=== PATIENT | male | born 1970 | race Caucasian/White ===

== ENCOUNTER 2019-11-16 11:30 | Emergency (ER) | payer OTHER, SELFPAY ==
[2019-11-16 11:38] VITALS: BP 152/109; PULSE 95; RESP 16; TEMP 37; O2SAT 97
--- NOTE | 2019-11-16 11:45 | ED.GENADULT ---
HPI - General Adult General Chief complaint: Upper Respiratory Infection Stated complaint: sinus infection Source: patient and RN notes reviewed Mode of arrival: ambulatory Limitations: no limitations History of Present Illness HPI narrative: This is a 49 years old male presents to the office for an evaluation of an evaluation of bad head/chest congestion for three days. He states he has chronic cough due to his COPD from heavy smoker. He used to smoke 3 packs a day now cutting down to 3 to half a pack a day. Cough is worse at nighttime when he is lying down. He has been using his nebulizer treatment along with maintenance inhaler with no relief. Denies sick contact at home. He did not try [id number] medication for his symptoms. He has been staying at home; denies concern for COVID. Related Data Home Medications Medication Instructions Recorded Confirmed albuterol sulfate 2 puff INHALATION QID 11/16/19 11/16/19 albuterol sulfate 2.5 mg INHALATION DIRECTED 11/16/19 11/16/19 fluticasone propion-salmeterol 1 inh INHALATION DIRECTED 11/16/19 11/16/19 [Donaldxkishan Inhub] gabapentin 100 mg PO DAILY 11/16/19 11/16/19 ipratropium-albuterol 3 ml INHALATION DIRECTED 11/16/19 11/16/19 Allergies Allergy/AdvReac Type Severity Reaction Status Date / Time No Known Allergies Allergy Verified 11/16/19 11:49 Review of Systems Review of Systems: Narrative: CONSTITUTIONAL: Denies fever or chills/sweats ENT:Denies sore throat. Reports sinus congestion CARDIOVASCULAR: Denies chest pain RESPIRATORY: Reports dyspnea, wheezing, cough GASTROINTESTINAL: Denies abdominal pain, nausea, vomiting GENITOURINARY: Admits to urinary retention at times due to his enlarged prostate however it is not new. SKIN: Denies rash MUSCULOSKELETAL: Denies acute back pain NEUROLOGIC: Denies lightheaded PMFSH Past Medical History Medical History (Updated 11/16/19 @ 12:08 by CARISSA Gaming) Chronic back pain fell off a ladder COPD (chronic obstructive pulmonary disease) Enlarged prostate Social History Social History (Updated 11/16/19 @ 11:45 by CARISSA Gaming) Smoking status: Current every day smoker Comments At time of signature, I agree with nursing past medical, surgical, social and family history. There is no relevant family history pertinent to the presenting complaint. Exam Narrative: Exam Narrative: GENERAL: This is a well-nourished, well-developed patient, in no apparent distress, very talkative, older than state age. EYES: Sclera clear/white. Vision is grossly intact. EARS: External ears normal, auditory canals clear and without drainage, TMs normal without perforation. Hearing grossly intact. NOSE: External nose normal with no obvious nasal discharge, nares without redness, no rhinorrhea. THROAT: Mucous membranes moist, posterior pharynx erythema with drainage NECK: Neck supple, non-tender without lymphadenopathy, masses or thyromegaly. CARDIOVASCULAR: Regular rate and rhythm without murmurs, gallops, or rubs. RESPIRATORY: Wheezing noted with inspiration and expiration, barrel chest noted; no pursed lip breathing or use of accessory muscle. Breath sounds equal bilaterally. GASTROINTESTINAL: Abdomen soft, non-tender, nondistended. Bowel sounds are active. No guarding. SKIN: warm, intact with no suspicious lesions or rash, good texture and turgor. NEURO: awake, alert, and oriented to person, place and time. There were no obvious focal neurologic abnormalities. Steady gait Tim Coma Scale Eye Opening: Spontaneous 4 Tim Coma Scale Motor: Obeys Commands 6 Tim Coma Scale Verbal: Oriented 5 Medical Decision Making MDM Narrative Medical decision making narrative: Elevated BP noted: patient is informed that they may have pre-hypertension or hypertension based on a blood pressure reading in the department. I recommend the patient call the primary care provider listed on their discharge instructions or
== END 2019-11-16 12:11 | disposition home or self-care (01) ==
PROVIDERS: Emergency Provider Nurse Practitioner
DX: J06.9 Acute upper respiratory infection, unspecified (principal); J44.9 Chronic obstructive pulmonary disease, unspecified; F17.210 Nicotine dependence, cigarettes, uncomplicated; N40.0 Benign prostatic hyperplasia without lower urinary tract symptoms; R03.0 Elevated blood-pressure reading, without diagnosis of hypertension
CPT/HCPCS: 99213; G0463

== ENCOUNTER 2019-12-11 17:14 | Emergency (ER) | payer OTHER, SELFPAY ==
--- NOTE | 2019-12-11 17:17 | ED.GENADULT ---
HPI - General Adult General Chief complaint: Upper Respiratory Infection Stated complaint: chest congestion/cough/wheezing Time Seen by Provider: 12/11/19 17:17 Source: patient Mode of arrival: ambulatory Limitations: no limitations History of Present Illness HPI narrative: 49-year-old male patient presents to the [facility] with complaints of worsening shortness of breath. Patient states he has had issues with the eyes for about a month to 3 months. Patient states is been getting worse. Patient has a history of COPD with multiple breathing treatments and inhalers at home. Patient states he has been trying them which has not been helping. Patient denies any fevers. Denies any chest pain. Denies any abdominal pain, nausea, vomiting or diarrhea. Related Data Home Medications Medication Instructions Recorded Confirmed albuterol sulfate 2 puff INHALATION QID 11/16/19 12/11/19 albuterol sulfate 2.5 mg INHALATION DIRECTED 11/16/19 12/11/19 gabapentin 100 mg PO DAILY 11/16/19 12/11/19 ipratropium-albuterol 3 ml INHALATION DIRECTED PRN 11/16/19 12/11/19 albuterol sulfate [ProAir HFA] 2 puff INHALATION QID 12/11/19 12/11/19 fluticasone propion-salmeterol 1 inh INHALATION Q12H 12/11/19 12/11/19 [Wixela Inhub] quetiapine 100 mg PO HS 12/11/19 12/11/19 Allergies Allergy/AdvReac Type Severity Reaction Status Date / Time No Known Allergies Allergy Verified 12/11/19 17:17 Review of Systems Review of Systems: Narrative: CONSTITUTIONAL: Denies fever, chills, or sweats. EYES: Denies visual changes, redness, or discharge. ENT: Denies rhinorrhea, congestion, sore throat, or otalgia. CARDIOVASCULAR: Denies chest pain, palpitations, or edema. RESPIRATORY: Positive cough with dyspnea. GASTROINTESTINAL: Denies abdominal pain, nausea, vomiting, or diarrhea. GENITOURINARY: Denies dysuria or hematuria. SKIN: Denies rash or itching. MUSCULOSKELETAL: Denies back pain, joint pain, or myalgia. NEUROLOGIC: Denies headache, numbness, or weakness. PSYCHIATRIC: Denies anxiety or depression. [facility]LY [facility] Past Medical History Medical History Chronic back pain fell off a ladder COPD (chronic obstructive pulmonary disease) Enlarged prostate Social History Social History Smoking status: Current every day smoker Comments At the time of my signature I agree with nursing past medical history, surgical, social, and family history. There is no relevant family history pertinent to the presenting complaint. Exam Narrative: Exam Narrative: GENERAL: ill-appearing, well-nourished, and in acute distress. HEAD: Normocephalic, atraumatic. EYES: PERRLA and EOMI. ENT: Nares clear, no rhinorrhea or epistaxis. Mucous membranes moist. NECK: Supple. No lymphadenopathy CHEST: Patient has inspiratory and expiratory wheezing noted to bilateral upper and lower lobes on auscultation. Patient is having some labored breathing at this time. HEART: Regular rate and rhythm. No murmur heard. Normal peripheral pulses. ABDOMEN: Soft, nontender, nondistended, normal active bowel sounds. EXTREMITIES: Normal range of motion. No edema. SKIN: Warm, dry, no rash. NEURO: No focal deficits. Alert and oriented x3. Course Vital Signs Vital signs: Vital Signs Temperature 37.0 C 12/11/19 17:20 Pulse Rate 105 H 12/11/19 17:20 Respiratory Rate 16 12/11/19 17:20 Blood Pressure 145/73 H 12/11/19 17:20 Pulse Oximetry 97 12/11/19 17:20 Temperature 37.0 C 12/11/19 17:20 Pulse Rate 105 H 12/11/19 17:20 Respiratory Rate 16 12/11/19 17:20 Blood Pressure 145/73 H 12/11/19 17:20 Pulse Oximetry 97 12/11/19 17:20 Vital signs reviewed. The patient has been informed that they may have pre-hypertension or Hypertension based on a BP reading in the department. I recommend that the patient call the primary care provider listed on their discharge inst
[2019-12-11 17:20] VITALS: BP 145/73; PULSE 105; RESP 16; TEMP 37; O2SAT 97
[2019-12-11] MEDS: ALBUTEROL SULFATE NEB 2.5 MG/3 ML INH INHALATION (17:38)
[2019-12-11] MEDS: IPRATROPIUM BR 0.02% INH SOLN 0.5 MG/2.5 ML VIAL INHALATION (17:39)
--- NOTE | 2019-12-11 17:46 | ECG_ITS ---
Measurements Intervals [place] Rate: 96 P: 92 MT: 144 QRS: 58 QRSD: 81 T: 64 QT: 323 QTc: 408 Interpretive Statements SINUS RHYTHM RIGHT ATRIAL ENLARGEMENT LEFT ATRIAL ENLARGEMENT RSR' IN V1 OR V2, PROBABLY NORMAL VARIANT BASELINE ARTIFACT- I, II, III, AVR, AVL, AVF BORDERLINE ECG Electronically Signed On 12-12-2019 6:51:50 CDT by John De Luna D.O.
== END 2019-12-11 17:56 | disposition short-term general hospital (02) ==
PROVIDERS: Emergency Provider Nurse Practitioner Family; PCP Family Medicine
DX: R06.02 Shortness of breath (principal); J44.9 Chronic obstructive pulmonary disease, unspecified; N40.0 Benign prostatic hyperplasia without lower urinary tract symptoms; M54.9 Dorsalgia, unspecified; G89.29 Other chronic pain; F17.210 Nicotine dependence, cigarettes, uncomplicated
CPT/HCPCS: 93005; 94640; 99215; G0463

== ENCOUNTER 2020-08-31 14:22 | Emergency (ER) | payer OTHER, SELFPAY ==
--- NOTE | ~2020-08-31 | XR_ITS ---
EXAMINATION: [id number] INDICATION: Bilateral rib pain TECHNIQUE: A frontal view of the chest and multiple views of the bilateral ribs were obtained on nine radiographs. COMPARISON: None. FINDINGS: There are healed fractures at the posterior aspects of the of the left fourth through sixth ribs and the right seventh rib. There is a questionable nondisplaced fracture at the anterior aspect of the right seventh rib. The lungs are free of acute opacities. There is no pleural effusion or pne umothorax. The cardiomediastinal silhouette is normal. IMPRESSION: 1. Questionable nondisplaced fracture at the anterior aspect of the right seventh rib. Healed bilater al rib fractures. Reviewed, dictated and finalized at location A. DENT PHYSICIAN IMPRESSION: 1. Questionable nondisplaced fracture at the anterior aspect of the right seven th rib. Healed bilateral rib fractures.
[2020-08-31 14:51] VITALS: BP 143/84; PULSE 101; RESP 20; TEMP 36.6; O2SAT 97
--- NOTE | 2020-08-31 14:55 | ED.CHESTPAIN ---
HPI - Chest Pain General Chief Complaint: Chest Pain Stated Complaint: bruised chest area Time Seen by Provider: 08/31/20 14:55 Source: patient Mode of arrival: ambulatory Limitations: no limitations History of Present Illness HPI narrative: Abimael Leung is a 50 yo male with copd, who comes to express care with mid chest asuncion after wrestling teenaged child who slammed him to floor 2 days ago- since then has had chest wall pain and when coughs (from copd) is blood tinged. Patient has bipolar and PTSD, related blood pressure, COPD Related Data Home Medications Medication Instructions Recorded Confirmed gabapentin 300 mg PO DAILY 11/16/19 08/31/20 albuterol sulfate [ProAir HFA] 2 puff INHALATION QID 12/11/19 08/31/20 fluticasone propion-salmeterol 1 inh INHALATION Q12H 12/11/19 08/31/20 [Wixela Inhub] quetiapine 100 mg PO HS 12/11/19 08/31/20 atorvastatin 20 mg PO DAILY 08/31/20 08/31/20 cyclobenzaprine 5 mg PO TID PRN 08/31/20 08/31/20 diltiazem HCl 120 mg PO DAILY 08/31/20 08/31/20 ergocalciferol (vitamin D2) 1,250 mcg PO WEEKLY 08/31/20 08/31/20 [Vitamin D2] metoprolol succinate 25 mg PO DAILY 08/31/20 08/31/20 montelukast 10 mg PO DAILY 08/31/20 08/31/20 tramadol 50 mg PO Q8H PRN 08/31/20 08/31/20 Allergies Allergy/AdvReac Type Severity Reaction Status Date / Time No Known Allergies Allergy Verified 08/31/20 14:53 Review of Systems Review of Systems: Narrative: CONSTITUTIONAL: Denies fever, chills, sweats. EYES: Denies visual changes, redness, discharge. ENT: Denies rhinorrhea, congestion, sore throat, otalgia. CARDIOVASCULAR: has chest wall pain, palpitations, edema. RESPIRATORY: Denies dyspnea, wheezing, cough GASTROINTESTINAL: Denies abdominal pain, nausea, vomiting, diarrhea. GENITOURINARY: Denies dysuria, hematuria, abnormal discharge SKIN: Denies rash or itching. NEUROLOGIC: Denies numbness, or focal weakness. PSYCHIATRIC: Denies anxiety or depression. [facility] Past Medical History Medical History (Updated 08/31/20 @ 15:37 by Bryanna Pedraza CNP) Chronic back pain fell off a ladder COPD (chronic obstructive pulmonary disease) Enlarged prostate Family History Family History Other Heart disease Social History Social History (Updated 08/31/20 @ 15:26 by Bryanna Pedraza CNP) Smoking status: Current every day smoker Alcohol intake: never Comments At time of signature, I agree with nursing past medical, surgical, social and family history. There is no relevant family history pertinent to the presenting complaint. Has hypertension, blood pressure is elevated Exam Narrative: Exam Narrative: GENERAL: This is a well-nourished, well-developed patient, in moderate distress. Pain is 6-7/10, with coughing is 10/10 HEAD: normocephalic, atraumatic. EYES: Sclera clear/white. Vision is grossly intact. EARS: External ears normal. Hearing grossly intact. NOSE: External nose normal without nasal discharge, nares without redness, no rhinorrhea. THROAT: Mucous membranes moist, NECK: Neck supple, CARDIOVASCULAR: Regular rate and rhythm without murmurs, gallops, or rubs. RESPIRATORY: Diminished to auscultation. Breath sounds equal bilaterally. No wheezes, rales, or rhonchi. popping noise with deep inspiration GASTROINTESTINAL: Abdomen soft, SKIN: warm, intact with no suspicious lesions or rash, good texture and turgor. NEURO: awake, alert, and oriented to person, place and time. There were no obvious focal neurologic abnormalities. Steady gait EXTREMITIES: Normal range of motion. BACK: Nontender without deformity Course Course Emergency Course: [facility] of [facility] pain after receiving room with adolescent child at home given 4. 2 days ago now has some blood-tinged sputum with coughing from COPD and continues to have chest wall pain X-ray of chest done for bilateral ribs and PA chest-shows pos
== END 2020-08-31 15:52 | disposition home or self-care (01) ==
PROVIDERS: Emergency Provider Nurse Practitioner
DX: S22.31XA Fracture of one rib, right side, initial encounter for closed fracture (principal); W03.XXXA Other fall on same level due to collision with another person, initial encounter; Y93.83 Activity, rough housing and horseplay; J44.9 Chronic obstructive pulmonary disease, unspecified; N40.0 Benign prostatic hyperplasia without lower urinary tract symptoms; E78.00 Pure hypercholesterolemia, unspecified; I10 Essential (primary) hypertension; F31.9 Bipolar disorder, unspecified
CPT/HCPCS: 71111; 99213; G0463

== ENCOUNTER 2022-02-01 12:37 | Emergency (ER) | payer OTHER, SELFPAY ==
[2022-02-01 12:45] VITALS: BP 147/90; PULSE 90; RESP 18; TEMP 36.9; O2SAT 100
--- NOTE | 2022-02-01 12:47 | ED.MALEGU ---
HPI - Male Genitourinary General Chief complaint: Urogenital-Male Stated complaint: leg cramps poss uti Time Seen by Provider: 02/01/22 12:47 Source: patient and RN notes reviewed History of Present Illness HPI Narrative: Patient is a 51-year-old male who presents the urgent care with complaints of odorous urination, dribbling, incontinence, difficulty urinating and dark urine for the last 2 weeks. Patient also reports of bilateral low back pain. Patient states he has had a urologist in the past and has had issues with his prostate and has not since followed up. Patient states he did call his doctor and they were unable to see him until March. Patient states has been complaining of leg cramps for some time however they have worsened in the last couple weeks. Patient reports of some nausea and intermittent lower abdominal pressure. Denies any vomiting or diarrhea. Denies any known fevers. Patient has not taken anything [id number] for his symptoms. No other acute complaints. No acute distress noted. Patient aware of the plan of care. Some parts of this dictation were generated by voice recognition software and may contain typographical and/or grammatical inaccuracies. Related Data Home Medications Medication Instructions Recorded Confirmed gabapentin 100 mg capsule 300 mg PO DAILY 11/16/19 08/31/20 albuterol sulfate 90 mcg/actuation 2 puff inhalation QID 12/11/19 08/31/20 aerosol inhaler (ProAir HFA) fluticasone 250 mcg-salmeterol 50 1 inh inhalation Q12H 12/11/19 08/31/20 mcg/dose blistr powdr for inhalation (Wixela Inhub) quetiapine 100 mg tablet 100 mg PO HS 12/11/19 08/31/20 atorvastatin 20 mg tablet 20 mg PO DAILY 08/31/20 08/31/20 cyclobenzaprine 5 mg tablet 5 mg PO TID PRN Muscle Spasm 08/31/20 08/31/20 diltiazem HCl 120 mg 120 mg PO DAILY 08/31/20 08/31/20 capsule,extended release 24 hr ergocalciferol (vitamin D2) 1,250 1,250 mcg PO WEEKLY 08/31/20 08/31/20 mcg (50,000 unit) capsule (Vitamin D2) metoprolol succinate 25 mg 25 mg PO DAILY 08/31/20 08/31/20 tablet,extended release 24 hr montelukast 10 mg tablet 10 mg PO DAILY 08/31/20 08/31/20 tramadol 50 mg tablet 50 mg PO Q8H PRN Pain 08/31/20 08/31/20 Allergies Allergy/AdvReac Type Severity Reaction Status Date / Time No Known Allergies Allergy Verified 08/31/20 14:53 Review of Systems Review of Systems: CONSTITUTIONAL: Denies fever, chills, or sweats. EYES: Denies visual changes, redness, or discharge. ENT: Denies rhinorrhea, congestion, sore throat, or otalgia. CARDIOVASCULAR: Denies chest pain, palpitations, or edema. RESPIRATORY: Denies cough or dyspnea. GASTROINTESTINAL: Reports of lower abdominal discomfort, nausea without vomiting or diarrhea GENITOURINARY: Reports of dark, odorous, incontinence urination with difficulty urinating SKIN: Denies rash or itching. MUSCULOSKELETAL: Denies back pain, joint pain, or myalgia. NEUROLOGIC: Denies headache, numbness, or weakness. All other systems reviewed are negative, except as documented in HPI. [facility] Past Medical History Medical History (Updated 02/01/22 @ 12:59 by CARISSA Titus) Chronic back pain fell off a ladder COPD (chronic obstructive pulmonary disease) Enlarged prostate Family History Family History Other Heart disease Social History Social History (Updated 08/31/20 @ 15:26 by Bryanna Pedraza CNP) Smoking status: Current every day smoker Alcohol intake: never Comments At the time of my signature, I reviewed and agree with the nursing past medical, surgical, social, and family history. There is no relevant family history pertinent to the patient complaint. Exam Narrative: GENERAL: This is a well-nourished, well-developed patient, in no apparent distress. HEAD: normocephalic, atraumatic. EYES: PERRL. Sclera clear/white. Vision is grossly intact. EARS: External ears normal NOSE: Exter
[2022-02-01 12:51] VITALS: BP 147/90; PULSE 90; RESP 18; TEMP 36.9; O2SAT 100
== END 2022-02-01 13:06 | disposition short-term general hospital (02) ==
PROVIDERS: Emergency Provider Nurse Practitioner Family; PCP Hospitalist
DX: R31.9 Hematuria, unspecified (principal); J44.9 Chronic obstructive pulmonary disease, unspecified; N40.0 Benign prostatic hyperplasia without lower urinary tract symptoms; F17.200 Nicotine dependence, unspecified, uncomplicated
CPT/HCPCS: 81003; 99212; G0463

== ENCOUNTER 2022-10-19 18:29 | Emergency (ER) | payer OTHER, SELFPAY ==
--- NOTE | ~2022-10-19 | XR_ITS ---
EXAMINATION: XR ribs LT 2V w CXR 2V Exam Date/Time: 10/19/2022 18:54 CDT HISTORY: KNI. COUGH/CONGESTION X 2 DAYS. COPD. SMOKER. Comparison: None available. RESULT: Lines, tubes, and devices: None. Lungs and pleura: Emphysematous changes. Calcified pulmonary granulomas. Cardiothymic silhouette: Stable. Other: No acute osseous or upper abdominal finding. Multiple old left-sided rib fractures IMPRESSION: No acute cardiopulmonary process. No acute osseous finding in the left ribs Reviewed, dictated and finalized at location K.
[2022-10-19 18:42] VITALS: BP 146/87; PULSE 102; RESP 20; TEMP 37.2; O2SAT 100
--- NOTE | 2022-10-19 19:44 | ED.GENADULT ---
HPI - General Adult General Chief complaint: Upper Respiratory Infection Stated complaint: Rib Pain/ Left Side Source: patient and RN notes reviewed History of Present Illness HPI narrative: 52-year-old male presents to urgent care with complaints of pain to his left lower ribs. Patient states on Wednesday he was working on his car when he coughed and felt a pop in his left ribs. Patient states ever since then it hurts to take a deep breath and he has been having shortness of breath. Patient reports increased pain with palpation. Patient states he has a history of COPD and he feels like he is starting to get pneumonia. Denies any fevers, vomiting, abdominal pain, or any other complaints. Patient states he has been using his inhaler taking his daily steroids without much relief. Related Data Home Medications Medication Instructions Recorded Confirmed gabapentin 100 mg capsule 300 mg PO DAILY 11/16/19 08/31/20 albuterol sulfate 90 mcg/actuation 2 puff inhalation QID 12/11/19 08/31/20 aerosol inhaler (ProAir HFA) fluticasone 250 mcg-salmeterol 50 1 inh inhalation Q12H 12/11/19 08/31/20 mcg/dose blistr powdr for inhalation (Wixela Inhub) quetiapine 100 mg tablet 100 mg PO HS 12/11/19 08/31/20 atorvastatin 20 mg tablet 20 mg PO DAILY 08/31/20 08/31/20 ergocalciferol (vitamin D2) 1,250 1,250 mcg PO WEEKLY 08/31/20 08/31/20 mcg (50,000 unit) capsule (Vitamin D2) metoprolol succinate 25 mg 25 mg PO DAILY 08/31/20 08/31/20 tablet,extended release 24 hr montelukast 10 mg tablet 10 mg PO DAILY 08/31/20 08/31/20 prednisone 10 mg tablet mg 10/19/22 Allergies Allergy/AdvReac Type Severity Reaction Status Date / Time No Known Allergies Allergy Verified 08/31/20 14:53 Review of Systems Review of Systems: CONSTITUTIONAL: Denies fever, chills, or sweats. EYES: Denies visual changes, redness, or discharge. ENT: Denies otalgia and sore throat CARDIOVASCULAR: Denies chest pain, palpitations, or edema. RESPIRATORY: Shortness of breath and pain to his left ribs, pain with inhalation GASTROINTESTINAL: Denies abdominal pain, nausea, vomiting, or diarrhea. GENITOURINARY: Denies dysuria or hematuria. SKIN: Denies rash or itching. MUSCULOSKELETAL: Denies back pain, joint pain, or myalgia. NEUROLOGIC: Denies headache, numbness, or weakness. Pertinent positives per HPI. [facility] Past Medical History Medical History (Updated 10/19/22 @ 19:52 by Haritha Jaramillo, BRENNAN) Chronic back pain fell off a ladder COPD (chronic obstructive pulmonary disease) Enlarged prostate Family History Family History Other Heart disease Social History Social History (Updated 08/31/20 @ 15:26 by Bryanna Pedraza, [employer]) Smoking status: Current every day smoker Alcohol intake: never Comments At the time of my signature, I reviewed and agree with the nursing past medical, surgical, social, and family history. There is no relevant family history pertinent to the patient complaint. Exam Narrative: GENERAL: This is a well-nourished, well-developed patient, in no apparent distress. HEAD: normocephalic, atraumatic. EYES: PERRL. Sclera clear/white. Vision is grossly intact. EARS: External ears normal, auditory canals clear and without drainage, TMs normal without perforation. Hearing grossly intact. NOSE: External nose normal with no obvious nasal discharge, nares without redness, no rhinorrhea. THROAT: Mucous membranes moist, posterior pharynx clear. NECK: Neck supple, non-tender without lymphadenopathy, masses or thyromegaly. CARDIOVASCULAR: Regular rate and rhythm without murmurs, gallops, or rubs. RESPIRATORY: Mild wheezes bilaterally SKIN: warm, intact with no suspicious lesions or rash, good texture and turgor. NEURO: awake, alert, and oriented to person, place and time. There were no obvious focal neurologic abnormalities. EXTREMITIES: No clubbing, cyanosis, or edema. No joint
== END 2022-10-19 19:57 | disposition home or self-care (01) ==
PROVIDERS: Emergency Provider Nurse Practitioner Family; PCP Hospitalist
DX: J40 Bronchitis, not specified as acute or chronic (principal); M94.0 Chondrocostal junction syndrome [Tietze]; J44.9 Chronic obstructive pulmonary disease, unspecified; N40.0 Benign prostatic hyperplasia without lower urinary tract symptoms; F17.200 Nicotine dependence, unspecified, uncomplicated
CPT/HCPCS: 71046; 71100; 99213; G0463

== ENCOUNTER 2023-05-17 15:19 | Emergency (ER) | payer OTHER, SELFPAY ==
[2023-05-17 15:36] VITALS: BP 213/129; PULSE 96; RESP 16; TEMP 36.8; O2SAT 100
--- NOTE | 2023-05-17 15:55 | ED.MALEGU ---
HPI - Male Genitourinary General Chief complaint: Urogenital-Male Stated complaint: Headache/Fever/Urinary Problem Time Seen by Provider: 05/17/23 15:56 Source: patient Mode of arrival: ambulatory Limitations: no limitations History of Present Illness HPI Narrative: 53 yo M presents with c/o severe headache, fatigue, low back pain for several days. Afebrile. hx of HTN. States PCP took him off medications years ago and said BP normal. No urinary symptoms. Denies CP/SOB. Denies dizziness, lightheadedness, vision changes. Ambulatory with steady gait. No weakness, numbness to upper or lower extremities. All systems reviewed and negative except as noted above. Related Data Home Medications Medication Instructions Recorded Confirmed gabapentin 100 mg capsule 300 mg PO DAILY 11/16/19 08/31/20 albuterol sulfate 90 mcg/actuation 2 puff inhalation QID 12/11/19 08/31/20 aerosol inhaler (ProAir HFA) fluticasone 250 mcg-salmeterol 50 1 inh inhalation Q12H 12/11/19 08/31/20 mcg/dose blistr powdr for inhalation (Wixela Inhub) quetiapine 100 mg tablet 100 mg PO HS 12/11/19 08/31/20 atorvastatin 20 mg tablet 20 mg PO DAILY 08/31/20 08/31/20 ergocalciferol (vitamin D2) 1,250 1,250 mcg PO WEEKLY 08/31/20 08/31/20 mcg (50,000 unit) capsule (Vitamin D2) metoprolol succinate 25 mg 25 mg PO DAILY 08/31/20 08/31/20 tablet,extended release 24 hr montelukast 10 mg tablet 10 mg PO DAILY 08/31/20 08/31/20 prednisone 10 mg tablet mg 10/19/22 Allergies Allergy/AdvReac Type Severity Reaction Status Date / Time No Known Allergies Allergy Verified 08/31/20 14:53 Review of Systems Review of Systems: CONSTITUTIONAL: Denies fever, chills, or sweats. Reports fatigue. EYES: Denies visual changes, redness, or discharge. ENT: Denies rhinorrhea, congestion, sore throat, or otalgia. CARDIOVASCULAR: Denies chest pain, palpitations, or edema. RESPIRATORY: Denies cough or dyspnea. GASTROINTESTINAL: Denies abdominal pain, nausea, vomiting, or diarrhea. GENITOURINARY: Denies dysuria or hematuria. SKIN: Denies rash or itching. MUSCULOSKELETAL: Reports low back pain. Denies joint pain, or myalgia. NEUROLOGIC: Reports headache. Denies numbness, or weakness. PSYCHIATRIC: Denies anxiety or depression. All other systems reviewed are negative, except as documented in HPI. [facility] Past Medical History Medical History (Updated 05/17/23 @ 16:27 by Annamarie Barrientos NP) Chronic back pain fell off a ladder COPD (chronic obstructive pulmonary disease) Enlarged prostate Family History Family History Other Heart disease Social History Social History (Updated 08/31/20 @ 15:26 by Bryanna Pedraza, MARC) Smoking status: Current every day smoker Alcohol intake: never Comments At time of signature, agree with nursing past medical, surgical, social and family history. There is no relevant family history pertinent to the presenting complaint. Exam Narrative: GENERAL: This is a well-nourished, well-developed patient, in no apparent distress. HEAD: normocephalic, atraumatic. EYES: PERRL. Sclera clear/white. Vision is grossly intact. EARS: External ears normal NOSE: External nose normal NECK: Neck supple, non-tender without lymphadenopathy, masses or thyromegaly. CARDIOVASCULAR: Regular rate and rhythm without murmurs, gallops, or rubs. RESPIRATORY: Clear to auscultation. Breath sounds equal bilaterally. No wheezes, rales, or rhonchi. SKIN: warm, Dry, intact with no suspicious lesions or rash, good texture and turgor. NEURO: awake, alert, and oriented to person, place and time. There were no obvious focal neurologic abnormalities. EXTREMITIES: No joint tenderness, effusion, or edema noted. Course Course Level of Care: Express Care Visit Vital Signs Vital signs: Vital Signs Temperature 36.8 C 05/17/23 15:36 Pulse Rate 96 05/17/23 15:36 Respirator
--- NOTE | 2023-05-17 16:04 | ECG_ITS ---
Measurements Intervals [place] Rate: 106 P: 87 DC: 141 QRS: 64 QRSD: 80 T: 86 QT: 314 QTc: 417 Interpretive Statements SINUS TACHYCARDIA RIGHT ATRIAL ENLARGEMENT LEFT ATRIAL ENLARGEMENT INCOMPLETE RIGHT BUNDLE BRANCH BLOCK NONSPECIFIC T-WAVE ABNORMALITY- HIGH LATERAL LEADS BASELINE ARTIFACT- II, III, AVR, AVL, AVF ABNORMAL ECG COMPARED TO ECG 12/11/2019 17:40:28 SINUS TACHYCARDIA NOW PRESENT T-WAVE ABNORMALITY NOW PRESENT Electronically Signed On 05-17-2023 16:34:53 COTTON MACHINE OPERATOR by John De Luna D.O.
[2023-05-17 16:27] LABS: Glucose Point of Care 81 mg/dl (65-105)
== END 2023-05-17 16:32 | disposition short-term general hospital (02) ==
PROVIDERS: Emergency Provider Nurse Practitioner Family; PCP Hospitalist
DX: R03.0 Elevated blood-pressure reading, without diagnosis of hypertension (principal); R31.9 Hematuria, unspecified; J44.9 Chronic obstructive pulmonary disease, unspecified; Z79.899 Other long term (current) drug therapy
CPT/HCPCS: 81003; 82948; 93005; 99213; G0463

== ENCOUNTER 2023-08-01 08:44 | Emergency (ER) | payer OTHER, SELFPAY ==
[2023-08-01 08:49] VITALS: BP 156/96; PULSE 99; RESP 16; TEMP 37.3; O2SAT 100
--- NOTE | 2023-08-01 09:08 | ED.URI ---
HPI - URI/Sore Throat General Chief Complaint: Upper Respiratory Infection Stated Complaint: Sore Throat/Ear Pain Time Seen by Provider: 08/01/23 09:08 Source: patient, RN notes reviewed and old records reviewed Mode of arrival: ambulatory Limitations: no limitations History of Present Illness HPI Narrative: 53 year old male presents to [facility] care with complaints of sore throat, right ear pain, body aches, cough and fevers for the past 3 days. Patient does have a history of COPD and does use inhalers at home, continues to smoke cigarettes daily. Patient reports that he has had 101F fever and has been taking Tylenol for his discomfort. Patient reports that throat is very sore having difficulty swallowing with uvula noted to be swollen. MD elicited complaint: fever, cough, sore throat, rhinorrhea, nasal congestion and other (body aches) Pertinent past history: COPD Onset (ago): day(s) Pain scale (0-10): 8 Exacerbating factors: swallowing Treatments prior to arrival: acetaminophen Related Data Home Medications Medication Instructions Recorded Confirmed albuterol sulfate 90 mcg/actuation 2 puff inhalation QID 12/11/19 08/01/23 aerosol inhaler (ProAir HFA) atorvastatin 20 mg tablet 20 mg PO DAILY 08/31/20 08/01/23 aripiprazole 10 mg tablet 10 mg PO DAILY 08/01/23 08/01/23 fluticasone 250 mcg-salmeterol 50 2 inh inhalation DAILY 08/01/23 08/01/23 mcg/dose blistr powdr for inhalation (Advair Diskus) Allergies Allergy/AdvReac Type Severity Reaction Status Date / Time No Known Allergies Allergy Verified 08/01/23 09:03 Review of Systems Review of Systems: CONSTITUTIONAL: Reports malaise, chills, sweats, and fever. EYES: Denies visual changes, redness, or discharge. ENT: Reports rhinorrhea, congestion, no sinus pain, right otalgia and positive for sore throat. CARDIOVASCULAR: Denies chest pain, palpitations, or edema. RESPIRATORY: Reports cough.? Denies acute dyspnea. GASTROINTESTINAL: Denies abdominal pain, nausea, vomiting, diarrhea SKIN: Denies rash or itching. MUSCULOSKELETAL: Reports myalgia. NEUROLOGIC: Denies headache. All systems reviewed & are unremarkable except as noted in HPI and below PMFSH Past Medical History Medical History (Updated 08/01/23 @ 09:26 by Calista Lao NP) Chronic back pain fell off a ladder COPD (chronic obstructive pulmonary disease) Enlarged prostate Family History Family History Other Heart disease Social History Social History (Updated 08/01/23 @ 09:29 by Calista Lao NP) Smoking status: Current every day smoker Alcohol intake: never Substance use type: does not use Living arrangements: alone Gender identity (if verbalized by the patient): Male Comments At time of signature, agree with nursing past medical, surgical, social and family history. There is no relevant family history pertinent to the presenting complaint Exam Narrative: GENERAL: chronic ill appearing, fair-nourished, and in no acute distress. HEAD: Normocephalic EYES: PERRLA, conjunctivae clear ENT: Nares clear, turbinates edematous and erythematous, clear discharge. Mucous membranes moist. TM pearly duong with dull light reflex bilaterally; no tragal tenderness. Oropharynx erythematous without lesions. Tonsils enlarged and without exudate, no drooling, no hoarseness, no trismus, uvula swollen painful swallowing NECK: Supple. lymphadenopathy CHEST: Scattered wheezes, breath sounds equal. positive for wheezing, rhonchi, rales, or stridor. No respiratory distress, speaks in full sentences.cough noted, SAO2 100% on room air HEART: Regular rate and rhythm. No murmur heard. SKIN: Warm, dry, no rash. NEURO: Alert and oriented x3. PSYCH: Normal mood and affect Course Course Emergency Course: Patient is aware of diagnosis, understands and agrees to treatment plan.? Anticipatory guidance
== END 2023-08-01 09:30 | disposition home or self-care (01) ==
PROVIDERS: Emergency Provider Registered Nurse; PCP Hospitalist
DX: J06.9 Acute upper respiratory infection, unspecified (principal); J03.90 Acute tonsillitis, unspecified; H60.501 Unspecified acute noninfective otitis externa, right ear; Z20.822 Contact with and (suspected) exposure to COVID-19; J44.9 Chronic obstructive pulmonary disease, unspecified; N40.0 Benign prostatic hyperplasia without lower urinary tract symptoms
CPT/HCPCS: 87081; 87426; 87804; 87880; 99213; G0463

== ENCOUNTER 2024-01-20 08:19 | Emergency (ER) | payer OTHER, SELFPAY ==
[2024-01-20 08:33] VITALS: BP 191/117; PULSE 88; RESP 20; TEMP 36.3; O2SAT 100
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
[2024-01-20 08:53] VITALS: BP 162/102
== END 2024-01-20 09:00 | disposition home or self-care (01) ==
PROVIDERS: Emergency Provider Nurse Practitioner Family; PCP Hospitalist
DX: H60.502 Unspecified acute noninfective otitis externa, left ear (principal); H65.02 Acute serous otitis media, left ear; F17.200 Nicotine dependence, unspecified, uncomplicated; J44.9 Chronic obstructive pulmonary disease, unspecified; N40.0 Benign prostatic hyperplasia without lower urinary tract symptoms
CPT/HCPCS: 99213; G0463

== ENCOUNTER 2024-12-30 09:07 | Emergency (ER) | payer MEDICAID, SELFPAY ==
--- OUTSIDE RECORDS SUMMARY | 2024-12-30 09:09 | XMS_ITS | Encounter Summary ---
Author Organization [facility] Address [address] [place] [address] Phone Care Team Providers Care Traveling Nurse Name Role Phone Ivan Hicks MD Unavailable [phone] Sandra Mejía Primary Care Provider + Oneal Sheriff MD Primary Care Provider [phone] Rylee DANIEL MD, Courtney Unavailable [phone] Clark Almendarez MD Unavailable Reason for Visit * Reason Comments Medication Refill Encounter Details Date Type Department Care Team (Late st Contact Info) Description 04/08/[address] [facility] [address] [facility] [place] [id number] Clark Almendarez MD [address] [place] [address] Medication Refill Social History Tobacco Use Types Packs/Day Years Used Date Smoking Tobacco: Every Day Cigarettes 0.5 30 Smokeless Tobacco: Never Alcohol Use Standard Drinks/Week Comments No 0 (1 standard drink = 0.6 oz pur e alcohol) PHQ-2 Answer Date Recorded Total Score - Questions 1-9 0 02/26 Sexually Active Control Partners Comments Not Currently Female Sex and Gender Information Value Date Recorded Sex Assigned at Male 02/08/2023 1:58 PM CDT Legal Sex Male 8:43 PM CDT Gender Identity Male 02/08/2023 1:58 PM CDT Sexual Orientation Not on file COVID-19 Exposure Response Date Recorded In the last month, have you been in contact with someone who was confirmed or suspected to have Coronavirus / COVID-19? 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 [employer] Assessment Noted Time PHQ-9 Depression Total Score: 0 03/11/20 20 11:04 AM CDT documented as of this encounter Care Teams Traveling Nurse Relationship Specialty Start Date End Date Sandra Mejía [facility] [address] [place] [address] PCP - General Physician Bead Forming Machine Set Up Operator 02/07/20 06/04/21 Oneal Sheriff MD [address] [place] [address] PCP - General Family Medicine 06/05/21 Ivan Hicks MD Consulting Physician Psychiatry 03/22/17 Denise Mckee III, MD [address] [place] [address] Consulting Physician Urology 10/12/22 Clark Almendarez MD [address] [place] [address] Consulting Physician Pulmonary Disease 02/08/23 documented as of this encounter
--- OUTSIDE RECORDS SUMMARY | 2024-12-30 09:09 | XMS_ITS | Encounter Summary ---
Author Organization [facility] Address [address] [place] [address] Phone Care Team Providers Care Computer Application Developer Name Role Phone Ivan Hicks MD Unavailable [phone] Oneal Sheriff MD Primary Care Provider [phone] Rylee DANIEL MD, Courtney Unavailable [phone] Clark Almendarez MD Unavailable Reason for Visit * Reason Comments Medication Refill Encounter Details Date Type Department Care Team (Late st Contact Info) Description 04/21/2024 Refill [facility] & [facility] [address] [place] [address] Clark Almendarez MD [address] [place] [address] Medication Refill Social History Tobacco [...] PM CDT Sexual Orientation Not on file documented as of this encounter Miscellaneous Notes * Telephone Encounter - Jeanette Rod RN - 04/21/2024 1:00 PM CDT Patient requires an appointment documented in this encounter Plan of Treatment Not on file documented as of this encounter Goals Goal Patient Goal Type Associated Problems Recent Progress Patient-Stated? Author Self-Esteem Behavioral Health Improving( 3:21 PM CDT) Yes Ana Laura Odom LCSW Note: Goal Reviewed with: patient today Readiness to change: Thinking about making a change Department associated with goal: [facility] Steps to achieve goal: 1. will identify and process contributing factors/barriers to self-esteem. 2. will be able to identify, and report strong belief, in three or more personal strengths, qualities and/or abilities. 3. will identify at least two activities to engage in for the purpose of strengthening self confidence. 4. will engage in at least one activity to strengthen self-esteem. Depression Depression On track(2020 3:21 PM CDT) No Ana Laura Odom LCSW Note: to have reduction of anxiety and depression symptoms. Goal Reviewed with: patient today Readiness to change: Thinking about making a change Department associated with goal: [facility] Steps to achieve goal: to attend, at least twice monthly, counseling sessions. Sessions 30-45 minutes for 6 months. to identify, verbalize and process at least three contributing factors/triggers to anxiety and depression. to identify and verbalize at least three actions/skills to prevent and/or cope with anxiety and depression. to put into action, at least one time weekly, for one month, an action/skill to prevent and or cope with anxiety and depression. documented as of this encounter Visit Diagnoses Diagnosis Panlobular emphysema (HCC) Other emphysema documented in this encounter Additional Health Concerns Assessment Noted Time PHQ-9 Depression Total Score: 0 03/11/20 20 11:04 AM CDT documented as of this encounter Care Teams Computer Application Developer Relationship Specialty Start Date End Date Oneal Sheriff MD [address] [place] [address] PCP - General Family Medicine 06/05/21 Ivan Hicks MD Consulting Physician Psychiatry 03/22/17 Denise Mckee III, MD [address] [place] [address] Consulting Physician Urology 10/12/22 Clark Almendarez MD [address] [place] [address] Consulting Physician Pulmonary Disease 02/08/23 documented as of this encounter
--- OUTSIDE RECORDS SUMMARY | 2024-12-30 09:09 | XMS_ITS | Encounter Summary ---
Author Organization [facility] Address [address] [place] [address] Phone Care Team Providers Care Solids Control Technician Name Role Phone Ivan Hicks MD Unavailable [phone] Oneal Sheriff MD Primary Care Provider [phone] Rylee DANIEL MD, Courtney Unavailable Clark Almendarez MD Unavailable Reason for Visit * Reason Comments Medication Refill Encounter Details Date Type Department Care Team (Late st Contact Info) Description 10/06/2021 [facility]ill [facility] [address] [place] [address] Theresa Liang APRN, SAILING OFFICER [address] [address] Medication Refill Social History Tobacco Use Types [...] Exposure Response Date Recorded In the last 10 days, have yo u been in contact with someone who was confirmed or suspected to have Coronavirus/COVID-19? No / Unsure 09/10/2021 7:10 PM CDT documented as of this encounter Miscellaneous Notes * Telephone Encounter - Lula De Leon RN - 10/07/2021 2:40 PM CDT PCP is listed as Oneal Sheriff MD documented in this encounter Plan of Treatment Not on file documented as of this encounter Goals Goal Patient Goal Type Associated Problems Recent Progress Patient-Stated? 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 COVID - 19 Confirmed 05/17/2023 05/17/2023 023 12:16 AM VISITOR SERVICE ASSISTANT Assessment Noted Time PHQ-9 Depression Total Score: 0 03/11/20 11:04 AM CDT documented as of this encounter Care Teams Solids Control Technician Relationship Specialty Start Date End Date Oneal Sheriff MD [address] [place] [address] PCP - General Family Medicine 06/05/21 Ivan Hicks MD Consulting Physician Psychiatry 03/22/17 Denise Mckee III, MD [address] [place] [address] Consulting Physician Urology 10/12/22 Clark Almendarez MD [address] [place] [address] Consulting Physician Pulmonary Disease 02/08/23 documented as of this encounter
--- OUTSIDE RECORDS SUMMARY | 2024-12-30 09:09 | XMS_ITS | Encounter Summary ---
Author Organization [facility] Address [address] [place] [address] Phone Care Team Providers Care Light Rail Signal Technician Name Role Phone Ivan Hicks MD Unavailable [phone] Oneal Sheriff MD Primary Care Provider [phone] Rylee DANIEL MD, Courtney Unavailable [phone] Clark Almendarez MD Unavailable Reason for Visit * Reason Comments Medication Refill Encounter Details Date Type Department Care Team (Late st Contact Info) Description 05/10/2024 Refill [facility] Pul[facility]ology & Sleep Medicine [facility] [address] [place] [address] Clark Almendarez MD [address] [place] [address] Medication Refill Social History Tobacco [...] Telephone Encounter - Jeanette Rod RN - 05/10/2024 9:17 AM CST Patient requires an appointment CAPTAIN documented in this encounter Plan of Treatment Not on file documented as of this encounter Goals Goal Patient Goal Type Associated Problems Recent Progress Patient-Stated? Author Self-Esteem Behavioral Health Improving( 3:21 PM CDT) Yes Ana Laura Odom LCSW Note: Goal Reviewed with: patient today Readiness to change: Thinking about making a change Department associated with goal: [facility] Steps to achieve goal: [...] making a change Department associated with goal: [facility] Steps to achieve goal: [...] documented as of this encounter Care Teams Light Rail Signal Technician Relationship Specialty Start Date End Date Oneal Sheriff MD [address] [place] [address] PCP - General Family Medicine 06/05/21 Ivan Hicks MD Consulting Physician Psychiatry 03/22/17 Denise Mckee III, MD [address] [place] [address] Consulting Physician Urology 10/12/22 Clark Almendarez MD [address] [place] [address] Consulting Physician Pulmonary Disease 02/08/23 documented as of this encounter
--- OUTSIDE RECORDS SUMMARY | 2024-12-30 09:09 | XMS_ITS | Encounter Summary ---
Author Organization [facility] Address [address] [place] [address] Phone Care Team Providers Care Ticket Puller Name Role Phone Ivan Hicks MD Unavailable [phone] Oneal Sheriff MD Primary Care Provider [phone] Rylee DANIEL MD, Courtney Unavailable Clark Almendarez MD Unavailable Reason for Visit * Reason Comments Medication Refill Encounter Details Date Type Department Care Team (Late st Contact Info) Description 11/07/2021 [facility]ill [facility] [address] [place] [id number] Denise Winkler, PAC [address] [place] [address] Medication Refill Social History Tobacco Use Types [...] Encounter - Lula De Leon RN - 11/07/2021 11:53 AM CDT PCP Oneal Sheriff MD documented in this encounter Plan of Treatment Not on file documented as of this encounter Goals Goal Patient Goal Type Associated Problems Recent Progress Patient-Stated? Author Self-Esteem Behavioral Health Improving( 3:21 PM CDT) Yes Ana Laura Odom LCSW Note: Goal Reviewed with: patient today Readiness to change: Thinking about making a change Department associated with goal: [facility] Steps to achieve [...] making a change Department associated with goal: [facility] Steps to achieve [...] - 19 05/17/2023 05/17/2023 05/17/2023 5:58 PM PSYCHOLOGIST COVID - 19 Confirmed 05/17/2023 05/17/2023 023 12:16 AM PSYCHOLOGIST Assessment Noted Time PHQ-9 Depression Total Score: 0 03/11/20 11:04 AM CDT documented as of this encounter Care Teams Ticket Puller Relationship Specialty Start Date End Date Oneal Sheriff MD [address] [place] [address] PCP - General Family Medicine 06/05/21 Ivan Hicks MD Consulting Physician Psychiatry 03/22/17 Denise Mckee III, MD [address] [place] [address] Consulting Physician Urology 10/12/22 Clark Almendarez MD [address] [place] [address] Consulting Physician Pulmonary Disease 02/08/23 documented as of this encounter
--- OUTSIDE RECORDS SUMMARY | 2024-12-30 09:09 | XMS_ITS | Encounter Summary ---
Author Organization [facility] Address [address] [place] [address] Phone Care Team Providers Care Scientific Research Manager Name Role Phone Ivan Hicks MD Unavailable [phone] Sandra Mejía Primary Care Provider + Oneal Sheriff MD Primary Care Provider [phone] Rylee DANIEL MD, Courtney Unavailable [phone] Clark Almendarez MD Unavailable Reason for Visit * Reason Comments Medication Refill Encounter Details Date Type Department Care Team (Late st Contact Info) Description 06/04/[address] [facility] - Family Medicine [facility] [address] [place] [address] Sandra Mejía, [facility] [address] [place] [address] Medication Refill Social History Tobacco Use Types [...] Encounter - Lula De Leon RN - 06/05/2021 2:05 PM CST PCP is Oneal Sheriff ING PIN SETTERS INSTALLER documented in this encounter Plan of Treatment Not on file documented as of this encounter Goals Goal Patient Goal Type Associated Problems Recent Progress Patient-Stated? Author Self-Esteem Behavioral Health Improving( 3:21 PM CDT) Yes Ana Laura Odom LCSW Note: Goal Reviewed with: patient today Readiness to change: Thinking about making a change Department associated with goal: [facility] Steps to achieve goal: [...] making a change Department associated with goal: [facility] Steps to achieve goal: [...] Indicated Resolved Time COVID - 19 05/17/2023 05/17/202305/1705/17/2023 5:58 PM BOWLING PIN SETTERS INSTALLER COVID - 19 Confirmed 05/17/2023 05/17/2023 023 12:16 AM BOWLING PIN SETTERS INSTALLER Assessment Noted Time PHQ-9 Depression Total Score: 0 03/11/20 11:04 AM CDT documented as of this encounter Care Teams Scientific Research Manager Relationship Specialty Start Date End Date Sandra Mejía PAC [address] [place] [address] PCP - General Physician Banjo Repairer 02/07/20 06/04/21 Oneal Sheriff MD [address] [facility] [place] [address] PCP - General Family Medicine 06/05/21 Ivan Hicks MD Consulting Physician Psychiatry 03/22/17 Denise Mckee III, MD [address] [place] [address] Consulting Physician Urology 10/12/22 Clark Almendarez MD [address] [place] [address] Consulting Physician Pulmonary Disease 02/08/23 documented as of this encounter
--- OUTSIDE RECORDS SUMMARY | 2024-12-30 09:09 | XMS_ITS | Encounter Summary ---
Author Organization [facility] Address [address] [place] [address] Phone Care Team Providers Care Registered Route Associate Name Role Phone Ivan Hicks MD Unavailable [phone] Oneal Sheriff MD Primary Care Provider [phone] Rylee DANIEL MD, Courtney Unavailable [phone] Clark Almendarez MD Unavailable Reason for Visit * Reason Comments Medication Refill Encounter Details Date Type Department Care Team (Late st Contact Info) Description 01/05/2023 Refill [facility] - Pulmonology & Sleep Medicine [facility] [address] [place] [address] Clark Almendarez MD [address] [place] [address] Medication Refill Social History Tobacco [...] encounter Miscellaneous Notes * Telephone Encounter - Fide Najera RN - 01/05/2023 3:41 PM CDT Patient needs an appointment documented in this encounter Plan of Treatment Not on file documented as of this encounter Goals Goal Patient Goal Type Associated Problems Recent Progress Patient-Stated? 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 COVID - 19 Confirmed 05/17/2023 05/17/2023 023 12:16 AM INSTRUCTOR APPAREL MANUFACTURE Assessment Noted Time PHQ-9 Depression Total Score: 0 03/11/20 20 11:04 AM CDT documented as of this encounter Care Teams Registered Route Associate Relationship Specialty Start Date End Date Oneal Sheriff MD [address] [place] [address] PCP - General Family Medicine 06/05/21 Ivan Hicks MD Consulting Physician Psychiatry 03/22/17 Denise Mckee III, MD [address] [place] [address] Consulting Physician Urology 10/12/22 Clark Almendarez MD [address] [place] [address] Consulting Physician Pulmonary Disease 02/08/23 documented as of this encounter
--- OUTSIDE RECORDS SUMMARY | 2024-12-30 09:09 | XMS_ITS | Encounter Summary ---
Author Organization [facility] Address [address] [place] [address] Phone Care Team Providers Care Baby Formula Mixer Name Role Phone Ivan Hicks MD Unavailable [phone] Oneal Sheriff MD Primary Care Provider [phone] Rylee DANIEL MD, Courtney Unavailable Clark Almendarez MD Unavailable Reason for Visit * Reason Comments Medication Refill Encounter Details Date Type Department Care Team (Late st Contact Info) Description 03/20/2022 Refill [facility] [address] [place] [id number] Sandra Mejía, [facility] [address] [place] [address] Medication Refill Social History Tobacco Use Types [...] on file documented as of this encounter Plan of Treatment Not on file documented as of this encounter Goals Goal Patient Goal Type Associated Problems Recent Progress Patient-Stated? Author Self-Esteem Behavioral Health Improving( 3:21 PM CDT) Yes Ana Laura Odom LCSW Note: Goal Reviewed with: patient today Readiness to change: Thinking about making a change Department associated with goal: [facility] Steps to [...] a change Department associated with goal: [facility] Steps to [...] - 19 05/17/2023 05/17/2023 05/17/2023 5:58 PM ASSEMBLIES AND INSTALLATIONS INSPECTOR COVID - 19 Confirmed 05/17/2023 05/17/2023 023 12:16 AM ASSEMBLIES AND INSTALLATIONS INSPECTOR Assessment Noted Time PHQ-9 Depression Total Score: 0 03/11/20 20 11:04 AM CDT documented as of this encounter Care Teams Baby Formula Mixer Relationship Specialty Start Date End Date Oneal Sheriff MD [address] [address] PCP - General Family Medicine 06/05/21 Ivan Hicks MD Consulting Physician Psychiatry 03/22/17 Denise Mckee III, MD [address] [place] [address] Consulting Physician Urology 10/12/22 Clark Almendarez MD [address] [place] [address] Consulting Physician Pulmonary Disease 02/08/23 documented as of this encounter
--- OUTSIDE RECORDS SUMMARY | 2024-12-30 09:09 | XMS_ITS | Encounter Summary ---
Author Organization [facility] Address [address] [place] [address] Phone Care Team Providers Care Collections Director Name Role Phone Ivan Hicks MD Unavailable Oneal Sheriff MD Primary Care Provider [phone] Rylee DANIEL MD, Courtney Unavailable [phone] Clark Almendarez MD Unavailable Reason for Visit * Reason Comments Medication Refill Encounter Details Date Type Department Care Team (Late st Contact Info) Description 05/18/2022 Refill [facility] - Pulmonology & Sleep Medicine [facility] [address] [place] [address] Clark Almendarez MD [address] [place] [address] Medication Refill Social History Tobacco [...] suspected to have Coronavirus/COVID-19? No / Unsure 04/27/2022 11:22 AM CDT documented as of this encounter Miscellaneous Notes * Telephone Encounter - Fide Najera RN - 05/18/2022 8:03 AM PORTABLE IRRIGATION OPERATOR Medication failed the protocol, provider to review and approve the medication order if appropriate. Requested Prescriptions Pending Prescriptions Disp Refills predniSONE (DELTASONE) 10 MG Tablet [Pharmacy Med Name: PREDNISONE 10MG TABLET] 30 Tablet 3 Sig: TAKE 1 TABLET BY MOUTH DAILY. Not Delegated - Corticosteroids Protocol Failed - 05/18/2022 1:15 AM Failed - This refill cannot be delegated Passed - Visit with relevant provider in past 12 months or upcoming 90 days Recent Visits Date Type Provider Dept 12/17/21 Office Visit Clark Almendarez MD [facility] & [facility] Showing recent visits within past 365 days and meeting all other requirements Future Appointments No visits were found meeting these conditions. Showing future appointments within next 90 days and meeting all other requirements Advair Diskus 250-50 MCG/ACT AEROSOL POWDER, BREATH ACTIVATED [Pharmacy Med Name: ADVAIR DISKUS 250/50 AERO POW BR ACT] 60 Each 3 Sig: TAKE 1 PUFF INTO LUNGS TWICE A DAY Inhaled Combinations Protocol Passed - 05/18/2022 1:15 AM Passed - Visit with relevant provider in past 12 months or upcoming 90 days Recent Visits Date Type Provider Dept 12/17/21 Office Visit Clark Almendarez MD [facility] Showing recent visits within past 365 days and meeting all other requirements Future Appointments No visits were found meeting these conditions. Showing future appointments within next 90 days and meeting all other requirements Passed - Active short-acting beta agonist prescription ABLE IRRIGATION OPERATOR documented in this encounter Plan of Treatment Not on file documented as of this encounter Goals Goal Patient Goal Type Associated Problems Recent Progress Patient-Stated? Author Self-Esteem Behavioral Health Improving( 3:21 PM CDT) Yes Ana Laura Odom LCSW Note: Goal Reviewed with: patient today Readiness to change: Thinking about making a change Department associated with goal: [facility] Steps to achieve [...] making a change Department associated with goal: [facility] Steps to achieve [...] - 19 05/17/2023 05/17/2023 05/17/2023 5:58 PM PORTABLE IRRIGATION OPERATOR COVID - 19 Confirmed 05/17/2023 05/17/2023 023 12:16 AM PORTABLE IRRIGATION OPERATOR Assessment Noted Time PHQ-9 Depression Total Score: 0 03/11/20 20 11:04 AM CDT documented as of this encounter Care Teams Collections Director Relationship Specialty Start Date End Date Oneal Sheriff MD [address] [place] [address] PCP - General Family Medicine 06/05/21 Ivan Hicks MD Consulting Physician Psychiatry 03/22/17 Denise Mckee III, MD [address] [place] [address] Consulting Physician Urology 10/12/22 Clark Almendarez MD [address] [place] [address] Consulting Physician Pulmonary Disease 02/08/23 documented as of this encounter
--- OUTSIDE RECORDS SUMMARY | 2024-12-30 09:09 | XMS_ITS | Encounter Summary ---
Author Organization [facility] Address [address] [place] [address] Phone Care Team Providers Care Home Health Aide Name Role Phone Ivan Hicks MD Unavailable [phone] Oneal Sheriff MD Primary Care Provider [phone] Rylee DANIEL MD, Courtney Unavailable [phone] Clark Almendarez MD Unavailable Reason for Visit * Reason Comments Medication Refill Encounter Details Date Type Department Care Team (Late st Contact Info) Description 01/11/2023 Refill [facility] - Pulmonology & Sleep Medicine [facility] [address] [place] [address] Clark Almendarez MD [address] [place] [address] Medication Refill Social History Tobacco [...] encounter Miscellaneous Notes * Telephone Encounter - Jenn Clements APRN, CNS - 01/15/2023 8:21 AM CDT Needs appointment documented in this encounter Plan of Treatment Not on file documented as of this encounter Goals Goal Patient Goal Type Associated Problems Recent Progress Patient-Stated? Author Self-Esteem Behavioral Health Improving( 3:21 PM CDT) Yes Ana Laura Odom LCSW Note: Goal Reviewed with: patient today Readiness to change: Thinking about making a change Department associated with goal: [facility] Steps to achieve [...] making a change Department associated with goal: [facility] Steps to achieve [...] - 19 05/17/2023 05/17/2023 05/17/2023 5:58 PM SERVICENOW ADMINISTRATOR COVID - 19 Confirmed 05/17/2023 05/17/2023 023 12:16 AM SERVICENOW ADMINISTRATOR Assessment Noted Time PHQ-9 Depression Total Score: 0 03/11/20 20 11:04 AM CDT documented as of this encounter Care Teams Home Health Aide Relationship Specialty Start Date End Date Oneal Sheriff MD [address] [place] [address] PCP - General Family Medicine 06/05/21 Ivan Hicks MD Consulting Physician Psychiatry 03/22/17 Denise Mckee III, MD [address] [place] [address] Consulting Physician Urology 10/12/22 Clark Almendarez MD [address] [place] [address] Consulting Physician Pulmonary Disease 02/08/23 documented as of this encounter
--- OUTSIDE RECORDS SUMMARY | 2024-12-30 09:09 | XMS_ITS | Referral Summary ---
Author Organization [facility] Medical Office Building A Address [address] [place] [address] Care Team Providers Care Shift Nurse Manager Name Role Phone Oneal Sheriff MD Primary Care Provider [phone] Encounters Date Type Department Care Team Description 10/04/2024 9:00 AM CDT Office Visit [facility] [address] [address] Oneal Sheriff MD Centrilobular emphysema (HCC) (Primary Dx); ASHD (arteriosclerotic heart disease); Bipolar affective disorder, currently depressed, mild (HCC); Hypertension, essential; Methamphetamine use disorder, moderate, dependence (HCC); Chronic congestive heart failure with left ventricular diastolic dysfunction (HCC) from Last 3 Months Allergies No known active allergies Medications naltrexone (DEPADE) 50 mg tablet Take 1 tablet (50 mg total) by mouth daily 30 tablet 11 05/28/20 24 025 Active Additional Information Patient not taking.Reported on 09/22/2024 NIFEdipine (NIFEdipine CC) 30 mg 24 hr tablet Take 2 tablets (60 mg total) by mouth daily 90 tablet 5 05/28/20 24 Active Additional Information Patient not taking.Reported on 09/22/2024 tamsulosin (FLOMAX) 0.4 mg extended release capsule TAKE 1 CAPSULE (0.4 MG TOTAL) BY MOUTH DAILY 90 capsule 5 09/30/19 25 Active ondansetron ODT (ZOFRAN-ODT) 4 mg disintegrating tablet Take 1 tablet (4 mg total) by mouth every 6 (six) hours as needed 09/26/19 25 Active aspirin 81 mg chewable tablet Take 1 tablet (81 mg total) by mouth daily 09/27/19 25 Active spironolactone (ALDACTONE) 25 mg tablet Take 0.5 tablets (12.5 mg total) by mouth daily 09/27/19 25 Active dilTIAZem (CARDIZEM) 30 mg tablet Take 1 tablet (30 mg total) by mouth daily Active metoprolol XL (TOPROL-XL) 25 mg extended release tablet Take 1 tablet (25 mg total) by mouth daily Active budesonide-glycopy r-formoterol (BREZTRI) 160-9-4.8 mcg/actuation inhaler Inhale 2 puffs 2 (two) times a day 32.1 g 3 10/05/19 25 026 Active buPROPion XL (WELLBUTRIN XL) 150 mg 24 hr tablet Take 1 tablet (150 mg total) by mouth every morning 90 tablet 4 10/05/19 25 026 Active Active Problems Problem Noted Date Diagnosed Date Chronic congestive heart donato calinyanet with left ventricular diastolic dysfunction 09/25/2024 Assessment & Plan (10/10/2024 3:46 PM CDT): Stable, well controlled; peripheral edema; patient will start Jardiance loss Continue diltiazem 30 mg daily, metoprolol 25 mg daily, spironolactone 12 point Severe malnutrition 09/25/2024 Supplemental oxygen dependent 09/25/2024 Acute on chronic respiratory failure with hypoxi a 09/22/2024 Hypertensive crisis 09/15/2024 Assessment & Plan (09/15/2024 12:37 PM CDT): Patient reports consistently uncontrolled blood pressure for the past week, per patient blood pressure has been averaging 180 over > 100. For the last 3 days he has had persistent headache not relieved with Tylenol or ibuprofen. He reports intermittent nausea which states this is not new for him. No visual disturbance, weakness or confusion. He has been taking nifedipine 60 mg daily. Patient does have a history of methamphetamine use, he denies any drug use in the past few months. Discussed my concerns for immediate complication such as stroke, brain swelling and heart attack. Advised patient that he needs to be evaluated in the emergency department now. Patient declined EMS transport, he states that he is not having any other symptoms besides headache and is capable of driving himself. Moderate episode of recurrent major depressive d isorder 05/28/2024 Assessment & Plan (05/28/2024 4:33 PM CLINICAL SYSTEMS ANALYST): Not well controlled; patient has significant self-esteem issues due to chronic substance use, history of intentional overdose Will start bupropion 150 mg daily Raynaud's disease without gangrene 08/07/2022 Assessment & Plan (08/07/2022 3:12 PM CLINICAL SYSTEMS ANALYST): Patient reports symptoms consistent with Raynaud's phenomonen, unclear if primary or secondary due to disease such as Buerger's disease from tobacco use Symptoms occur even with reachingin freezer Symptoms started about one year ago, and has worsened over this year Encourage smoking cessation, will start Nifedipine 30 mg daily today Leg cramps, sleep related 08/07/2022 Assessment & Plan (08/07/2022 3:14 PM CLINICAL SYSTEMS ANALYST): Patient reports crampig in legs, usually occurs at night, wakes patient from lseep -occurs every night, has to get out of bed and apply pressure -will check ferritin and Mg levels; -encourage stretching of legs prior to bed Methamphetamine use disorder, moderate, dependen ce 02/28/2021 Assessment & Plan (10/10/2024 3:46 PM CDT): Stable, improving; patient is actively working to quit use of methamphetamines; plans to engage with counseling order to help with cessation Assessment & Plan (05/28/2024 4:32 PM CLINICAL SYSTEMS ANALYST): Not well controlled, regular use of methamphetamines, last use was 3 days ago Patient reports history of ADHD; uses methamphetamines to help with focus and concentration Has been having tremors in the morning and difficulty with withdrawal Given history of abuse of methamphetamine, would recommend against starting stimulant therapy, however will start Strattera 40 mg daily, propranolol 150 mg daily, naltrexone 50 mg daily Patient to engage with Peer resource recovery engineer to discuss treatment options and mutual support Gastroesophageal reflux disease with stricture 0 02/21/2021 Generalized anxiety disorder with panic attacks 02/21/2021 Hallucinations 02/21/2021 Hypercalcemia of malignancy 02/21/2021 Hyperlipidemia 02/21/2021 Overview (04/17/2021): Stable, continue Lipitor 20 mg daily Assessment & Plan (05/28/2024 4:32 PM CLINICAL SYSTEMS ANALYST): Not well controlled; will recheck lipid levels; determine patient would benefit from medications, patient has had weight loss, unintentional Assessment & Plan (05/02/2021 4:37 PM CDT): ASCVD severe score is Mildlyelevated; will continue to monitor, encourage dietary changes to reduce cholesterol levels ifno response will discuss restarting atorvastatin Bipolar affective disorder, current episode depr essed 10/31/2020 Assessment & Plan (10/10/2024 3:46 PM CDT): Stable, continues to have some ups and Downs; patient is feeling down at this time due to decreased ability to do the task use to do for family Continue bupropion 150 mg daily; will continue to work on improving functional status, as well as management of mood Assessment & Plan (07/01/2021 2:50 PM CLINICAL SYSTEMS ANALYST): Improving, patient has changed Zyprexa and Prozac; reports improved mood stabilization since last visit Continue to follow with Psychiatry, continue Prozac 20 mg daily, Zyprexa 5 mg daily Assessment & Plan (05/02/2021 4:38 PM CDT): Stable, improved control; patient reports good improvement in mood on fluoxetine 20 mg daily, Zyprexa 5 mg daily Will continue to monitor and adjust medications as needed for treatment Assessment & Plan (04/18/2021 2:16 PM CDT): Patient follows with Psychiatry, currently on Remeron 15 mg, Seroquel 100 mg, BuSpar Per patient he has some taking all medicines and is generally aggressive when around people Today will start fluoxetine 20 and olanzapine 5 mg nightly Continue to monitor and encourage engagement with psychiatry Pulmonary HTN 02/26/2020 Benign prostatic hyperplasia with urinary freque ncy 07/28/2019 Assessment & Plan (08/07/2022 3:15 PM CLINICAL SYSTEMS ANALYST): Not well controlled; has history of TURP, now reports increased frequency, incomplete bladder emptying and nocturia Will start tamsulosin 0.4 mg daily; refer to Urology Assessment & Plan (04/18/2021 2:17 PM CDT): Patient's history of TURP, continues to have increased urinary frequency Will continue to monitor, refer to urology as necessary for worsening symptoms PALOMA (obstructive sleep apnea) 07/14/2018 Sacroiliac joint pain 09/15/2017 Tobacco dependence syndrome 08/03/2017 Foraminal stenosis of lumbosacral region 017 Overview (02/21/2021): Possibly impinging on bilateral L5 nerve roots Anterolisthesis 11/09/2016 ASHD (arteriosclerotic heart disease) 06/04/2016 Assessment & Plan (10/10/2024 3:45 PM CDT): Significant changes to exercise tolerance, patient reports feeling generally weak Continue ASA 81 mg daily, diltiazem 30 mg daily, metoprolol 25 mg daily; will follow up with patient regarding current treatments to ensure appropriate medications COPD (chronic obstructive pulmonary disease) Assessment & Plan (10/10/2024 3:44 PM CDT): Stable, improving; continues to have some dyspnea; patient reports doing better since discharge from hospital Will start Breztri 2 puffs b.I.d.;, continue prednisone 50 mg daily Assessment & Plan (05/02/2021 4:39 PM CDT): Stable, well controlled, patient reports good breathing; currently using only albuterol p.r.n. as well as nebulizer solution Hypertension, essential 07/12/2015 Assessment & Plan (10/10/2024 3:46 PM CDT): Stable, well controlled, blood pressure at goal; continue metoprolol 25 mg daily, daily, will evaluate for any further medications at follow up visit Assessment & Plan (05/28/2024 4:32 PM CLINICAL SYSTEMS ANALYST): Stable, well controlled, blood pressure at goal; will continue to monitor closely Continue nifedipine 30 mg daily Assessment & Plan (05/02/2021 4:36 PM CDT): Not well controlled, patient is attempt to simplify medication list discontinued metoprolol Will start lisinopril hydrochlorothiazide, he given patient's elevated blood pressure will likely need to medications; will give combo pill in order to reduce pill burden and simplify medication regimen Follow-up in 4-6 weeks to evaluate response to therapy Assessment & Plan (04/17/2021 11:57 AM CDT): Not well controlled, systolic at target, diastolic elevated at 98 Will continue to monitor; continue metoprolol 25 mg XR daily; will determine if patient would benefit from increased dose of metoprolol or additional blood pressure medicine at next visit Hypothyroidism 07/12/2015 Assessment & Plan (05/02/2021 4:37 PM CDT): TSH is mildly elevated at 6 discussed with patient risk and benefits of restarting thyroid medicine; at this time will hold office patient may Have subclinical hypothyroidism Immunizations Immunization Administration Dates Next Due Influenza, Quadrivalent, Spl it, Intramuscular 04/09/2022,04/19/2018,05/19/2017 Influenza, Quadrivalent, Spl it, Preservative Free, Intramuscular 03/21/2021,03/11/2020,06/04/2016 Influenza, Trivalent, IM (MDV) 04/17/2015 Influenza, Unspecified 09/15/2024(Deferr ed: Patient Refused),03/28/2024(Deferred: Patient Refused),04/05/2023(Deferred: Patient Refused),03/28/2023(Deferred: Patient Refused),04/28/2022,04/17/2015 Moderna SARS-CoV-2 Monovalen t Vaccination (12+ YRS) 10/21/2020,09/23/2020 Pneumococcal Polysaccharide PPV23 05/19/2017, Tdap 09/10/2021,12/09/2016,06/28/2013 Social History Tobacco Use Types Packs/Day Years Used Date Smoking Tobacco: Every Day Cigarettes Smokeless Tobacco: Never Tobacco Cessation:Ready to Q uit: No; Counseling Given: Yes AUDIT-C Answer Date Recorded Q1: How often do you have a drink containing alc ohol? Never 08/06/2022 Average Number of Drinks Not on file 023 Frequency of Binge Drinking Not on file 02/2023 PHQ-2 Answer Date Recorded PHQ-2 Total Score (If total score is 3 or more points, staff should administer the PHQ-9) 2 09/15/2024 PHQ-9 Answer Date Recorded PHQ-9 Total Score 21 05/18/2024 Personal Safety Answer Date Recorded Have you ever been in or are you currently in a harmful physical or emotional relationship or is someone making you feel afraid or unsafe? Denies 11/13/2022 Sex and Gender Information Value Date Recorded Sex Assigned at Not on file Legal Sex Male 1:25 PM CLINICAL SYSTEMS ANALYST Gender Identity Not on file Sexual Orientation Not on file Last Filed Vital Signs Vital Sign Reading Time Taken Comments Blood Pressure 136/86 10/04/2024 9:03 AM CDT Pulse 90 10/04/2024 9:03 AM CDT Temperature 36.5 C (97.7 F) 10/04/2024 9:03 AM CDT Respiratory Rate 24 10/04/2024 9:03 AM CDT Oxygen Saturation 97% 10/04/2024 9:03 AM CDT Inhaled Oxygen Concentration - - Weight 49.9 kg (110 lb) 10/04/2024 9:03 AM CDT Height 152.4 cm (5') 10/04/2024 9:03 AM CDT Body Mass Index 21.48 10/04/2024 9:03 AM CDT Plan of Treatment Not on file Insurance [facility] Care Teams Shift Nurse Manager Relationship Specialty Start Date End [place] [address] PCP - General 02/21/21
--- OUTSIDE RECORDS SUMMARY | 2024-12-30 09:09 | XMS_ITS | Encounter Summary ---
Author Organization [facility] Address [address] [place] [address] Phone Care Team Providers Care Head Of Sales And Marketing Name Role Phone Ivan Hicks MD Unavailable Oneal Sheriff MD Primary Care Provider [phone] Rylee DANIEL MD, Courtney Unavailable [phone] Clark Almendarez MD Unavailable Reason for Visit * Reason Comments Medication Refill Encounter Details Date Type Department Care Team (Late st Contact Info) Description 03/15/2024 Refill [facility] - Pulmonology & Sleep Medicine [facility] [address] [place] [address] Clark Almendarez MD [address] [place] [address] Medication Refill Social History Tobacco [...] Telephone Encounter - Jeanette Rod RN - 03/16/2024 8:01 AM CDT Patient requires an appointment documented in this encounter Plan of Treatment Not on file documented as of this encounter Goals Goal Patient Goal Type Associated Problems Recent Progress Patient-Stated? Author Self-Esteem Behavior[facility] Improving( 3:21 PM CDT) Yes Ana Laura Odom LCSW Note: Goal Reviewed with: patient today Readiness to change: Thinking about making a change Department associated with goal: [facility] BE[facility]IOR[facility] Steps to achieve goal: [...] a change Department associated with goal: [facility] Steps to achieve goal: [...] filedocumented in this encounter Additional Health Concerns Assessment Noted Time PHQ-9 Depression Total Score: 0 03/11/20 20 11:04 AM CDT documented as of this encounter Care Teams Head Of Sales And Marketing Relationship Specialty Start Date End Date Oneal Sheriff MD [address] [place] [address] PCP - General Family Medicine 06/05/21 Ivan Hicks MD Consulting Physician Psychiatry 03/22/17 Denise Mckee III, MD [address] [place] [address] Consulting Physician Urology 10/12/22 Clark Almendarez MD [address] [place] [address] Consulting Physician Pulmonary Disease 02/08/23 documented as of this encounter
--- OUTSIDE RECORDS SUMMARY | 2024-12-30 09:09 | XMS_ITS | Encounter Summary ---
Author Organization [facility] Address [address] [place] [address] Phone Care Team Providers Care Plug And Mold Finisher Name Role Phone Ivan Hicks MD Unavailable [phone] Oneal Sheriff MD Primary Care Provider [phone] Rylee DANIEL MD, Courtney Unavailable Clark Almendarez MD Unavailable Reason for Visit * Reason Comments Medication Refill Encounter Details Date Type Department Care Team (Late st Contact Info) Description 02/08/2023 Refill [facility] - Pulmonology & Sleep Medicine [facility] [address] [place] [address] Clark Almendarez MD [address] [place] [address] Medication Refill Social History Tobacco [...] suspected to have Coronavirus/COVID-19? No / Unsure 02/08/2023 1:57 PM CDT documented as of this encounter Miscellaneous Notes * Telephone Encounter - Jeanette Rod RN - 02/08/2023 11:54 AM CDT Pt needs an appointment documented in this encounter Plan of Treatment Not on file documented as of this encounter Goals Goal Patient Goal Type Associated Problems Recent Progress Patient-Stated? Author Self-Esteem Behavioral Health Improving( 3:21 PM CDT) Yes Ana Laura Odom LCSW Note: Goal Reviewed with: patient today Readiness to change: Thinking about making a change Department associated with goal: [facility] BEHAVIORAL HEALTH SERVICES Steps to [...] making a change Department associated with goal: [facility] Steps to [...] - 19 05/17/2023 05/17/2023 05/17/2023 5:58 PM KILN CAR REPAIRER COVID - 19 Confirmed 05/17/2023 05/17/2023 023 12:16 AM KILN CAR REPAIRER Assessment Noted Time PHQ-9 Depression Total Score: 0 03/11/20 11:04 AM CDT documented as of this encounter Care Teams Plug And Mold Finisher Relationship Specialty Start Date End Date Oneal Sheriff MD [address] [place] [address] PCP - General Family Medicine 06/05/21 Ivan Hicks MD Consulting Physician Psychiatry 03/22/17 Denise Mckee III, MD [address] [place] [address] Consulting Physician Urology 10/12/22 Clark Almendarez MD [address] [place] [address] Consulting Physician Pulmonary Disease 02/08/23 documented as of this encounter
--- OUTSIDE RECORDS SUMMARY | 2024-12-30 09:09 | XMS_ITS | Clinical Summary ---
Author Organization [facility] Medical Office Building A Address [address] [place] [address] Care Team Providers Care Area Attendant Name Role Phone Oneal Sheriff MD Primary Care Provider [phone] Allergies No known active allergies Medications naltrexone [...] Date Diagnosed Date Chronic congestive heart donato arelis with left ventricular diastolic dysfunction 09/25/2024 Assessment [...] 05/28/2024 Assessment & Plan (05/28/2024 4:33 PM INTERNATIONAL TRADE SPECIALIST): Not well controlled; patient has significant self-esteem issues due to chronic substance use, history of intentional overdose Will start bupropion 150 mg daily Raynaud's disease without gangrene 08/07/2022 Assessment & Plan (08/07/2022 3:12 PM INTERNATIONAL TRADE SPECIALIST): Patient reports symptoms consistent with Raynaud's phenomonen, unclear if primary or secondary due to disease such as Buerger's disease from tobacco use Symptoms occur even with reachingin freezer Symptoms started about one year ago, and has worsened over this year Encourage smoking cessation, will start Nifedipine 30 mg daily today Leg cramps, sleep related 08/07/2022 Assessment & Plan (08/07/2022 3:14 PM INTERNATIONAL TRADE SPECIALIST): Patient reports crampig in legs, usually occurs [...] cessation Assessment & Plan (05/28/2024 4:32 PM INTERNATIONAL TRADE SPECIALIST): Not well controlled, regular use of methamphetamines, [...] mg daily Patient to engage with Peer resolution specialist to discuss treatment options and mutual support Gastroesophageal reflux disease with stricture 0 02/21/2021 Generalized anxiety disorder with panic attacks 02/21/2021 Hallucinations 02/21/2021 Hypercalcemia of malignancy 02/21/2021 Hyperlipidemia 02/21/2021 Overview (04/17/2021): Stable, continue Lipitor 20 mg daily Assessment & Plan (05/28/2024 4:32 PM INTERNATIONAL TRADE SPECIALIST): Not well controlled; will recheck lipid levels; [...] mood Assessment & Plan (07/01/2021 2:50 PM INTERNATIONAL TRADE SPECIALIST): Improving, patient has changed Zyprexa and Prozac; [...] 07/28/2019 Assessment & Plan (08/07/2022 3:15 PM INTERNATIONAL TRADE SPECIALIST): Not well controlled; has history of TURP, [...] visit Assessment & Plan (05/28/2024 4:32 PM INTERNATIONAL TRADE SPECIALIST): Stable, well controlled, blood pressure at goal; [...] hold office patient may Have subclinical hypothyroidism Encounters Date Type Department Care Team Description 10/04/2024 9:00 AM CDT Office Visit [facility] [address] [address] Oneal Sheriff MD Centrilobular emphysema (HCC) (Primary Dx); ASHD (arteriosclerotic heart disease); Bipolar affective disorder, currently depressed, mild (HCC); Hypertension, essential; Methamphetamine use disorder, moderate, dependence (HCC); Chronic congestive heart failure with left ventricular diastolic dysfunction (HCC) from Last 3 Months Immunizations Immunization Administration Dates Next Due Influenza, Quadrivalent, Spl it, Intramuscular 04/09/2022,04/19/2018,05/19/2017 Influenza, Quadrivalent, Spl it, Preservative Free, Intramuscular 03/21/2021,03/11/2020,06/04/2016 Influenza, Trivalent, IM (MDV) 04/17/2015 Influenza, Unspecified 09/15/2024(Deferr ed: Patient Refused),03/28/2024(Deferred: Patient Refused),04/05/2023(Deferred: Patient Refused),03/28/2023(Deferred: Patient Refused),04/28/2022,04/17/2015 Moderna SARS-CoV-2 Monovalen t Vaccination (12+ YRS) 10/21/2020,09/23/2020 Pneumococcal Polysaccharide PPV23 05/19/2017, Tdap 09/10/2021,12/09/2016,06/28/2013 Surgical History Surgery Date Site/Laterality Comments PROSTATE CANCER GENE 3 (PCA3) CARDIAC CATHETERIZATION 06/28/2019 - 06/27/2020 FL UPPER GI AIR CONTRAST W KUB 07/13/2017 Left Medical History Medical History Date Comments COPD (chronic obstructive pulmonary disease) (HC C) Bipolar 1 disorder (HCC) Hypertension Emphysema of lung (HCC) ADHD (attention deficit hyperactivity disorder) Family History Medical History Relation Name Comments Cancer Mother Heart disease Mother Lung disease Other Relation Name Status Comments Father (Age 71) Mother (Age 52) Other Social History Tobacco Use Types Packs/Day Years [...] on file Legal Sex Male 1:25 PM INTERNATIONAL TRADE SPECIALIST Gender Identity Not on file Sexual Orientation Not on file Obstetrics History Last Filed Vital Signs Vital Sign Reading [...] 10/04/2024 9:03 AM CDT Plan of Treatment Health Maintenance Due Date Last Done Comments Colon Cancer Screening-Colonoscopy 1970 Hepatitis C Screening 1970 Prostate Cancer Screening-PSA 1970 Hepatitis B Screening 02/05/1988 Regular Well Visit/Exam 18-64 02/05/1988 Covid-19 Vaccine (3 - 2023- season) 2024 10/21/2020, 09/23/2020 Pneumococcal vaccine <65 (2 of 2 - PCV) 01/31/2025 05/19/2017, 10/11/2015 Postponed from 05/19/2018 (Patient declined, but will receive in the future) Zoster Vaccine (1 of 2) 02/15/2025 Post poned from 02/05/2020 (Patient declined, but will receive in the future) Influenza Vaccine (Season Ended) 2025 04/28/2022, 04/09/2022, 03/21/2021, Additional history exists Depression Screening 09/15/2025 09/15/2024, 05/18/2024, 05/18/2024, Additional history exists DTaP/Tdap/Td Vaccine (4 - Td or Tdap) 09/11/2031 09/10/2021, 12/09/2016, 06/28/2013 Insurance [facility] Care Teams Area Attendant Relationship Specialty Start Date End Date Oneal Sheriff MD [address] [place] [address] PCP - General 02/21/21
--- OUTSIDE RECORDS SUMMARY | 2024-12-30 09:09 | XMS_ITS | Encounter Summary ---
Author Organization [facility] Address [address] [place] [address] Phone Care Team Providers Care Sash Finisher Name Role Phone Ivan Hicks MD Unavailable [phone] Oneal Sheriff MD Primary Care Provider Rylee DANIEL MD, Courtney Unavailable Clark Almendarez MD Unavailable Reason for Visit * Reason Comments Medication Refill Encounter Details Date Type Department Care Team (Late st Contact Info) Description 11/03/2021 Refill [facility] [address] [place] [id number] Denise Winkler, PAC [address] [place] [address] Medication Refill Social History Tobacco [...] making a change Department associated with goal: [facility] Steps to achieve goal: [...] making a change Department associated with goal: [facility] Steps to achieve goal: [...] - 19 05/17/2023 05/17/2023 05/17/2023 5:58 PM TOURIST ADVISER COVID - 19 Confirmed 05/17/2023 05/17/2023 023 12:16 AM TOURIST ADVISER Assessment Noted Time PHQ-9 Depression Total Score: 0 03/11/20 11:04 AM CDT documented as of this encounter Care Teams Sash Finisher Relationship Specialty Start Date End Date Oneal Sheriff [place] [address] PCP - General Family Medicine 06/05/21 Ivan Hicks MD Consulting Physician Psychiatry 03/22/17 Denise Mckee III, MD [address] [place] [address] Consulting Physician Urology 10/12/22 Clark Almendarez MD [address] [place] [id number] Consulting Physician Pulmonary Disease 02/08/23 documented as of this encounter
--- OUTSIDE RECORDS SUMMARY | 2024-12-30 09:09 | XMS_ITS | Encounter Summary ---
Author Organization [facility] Address [address] [place] [address] Phone Care Team Providers Care Oracle Drm Consultant Name Role Phone Ivan Hicks MD Unavailable [phone] Sandra Mejía Primary Care Provider + Oneal Sheriff MD Primary Care Provider [phone] Rylee DANIEL MD, Courtney Unavailable [phone] Clark Almendarez MD Unavailable Reason for Visit * Reason Comments Medication Refill Encounter Details Date Type Department Care Team (Late st Contact Info) Description 05/05/2021 Refill [facility] - Family Medicine [facility] [address] [place] [address] Sandra Mejía, [facility] [address] [place] [address] Medication Refill Social History Tobacco Use Types [...] have Coronavirus / COVID-19? No / Unsure 05/01/2021 10:40 PM CDT documented as of this encounter Plan of Treatment Not on file documented as of this encounter Goals Goal Patient Goal Type Associated Problems Recent Progress Patient-Stated? Author Self-Esteem Behavioral Health Improving( 3:21 PM CDT) Yes Ana Laura Odom LCSW Note: Goal Reviewed with: patient today Readiness to change: Thinking about making a change Department associated with goal: [facility] Steps to achieve [...] making a change Department associated with goal: [facility] Steps to achieve [...] - 19 05/17/2023 05/17/2023 05/17/2023 5:58 PM CHILD STUDY TEAM DIRECTOR COVID - 19 Confirmed 05/17/2023 05/17/2023 023 12:16 AM CHILD STUDY TEAM DIRECTOR Assessment Noted Time PHQ-9 Depression Total Score: 0 03/11/20 11:04 AM CDT documented as of this encounter Care Teams Oracle Drm Consultant Relationship Specialty Start Date End Date [place] Sandra MenesesTRACIE [address] [place] [address] PCP - General Physician Chain Mortiser Operator 02/07/20 06/04/21 Oneal Sheriff MD [address] [place] [address] PCP - General Family Medicine 06/05/21 Ivan Hicks MD Consulting Physician Psychiatry 03/22/17 Denise Mckee III, MD [address] [place] [address] Consulting Physician Urology 10/12/22 Clark Almendarez MD [address] [place] [address] Consulting Physician Pulmonary Disease 02/08/23 documented as of this encounter
--- OUTSIDE RECORDS SUMMARY | 2024-12-30 09:09 | XMS_ITS | Encounter Summary ---
Author Organization [facility] Address [address] [place] [address] Phone Care Team Providers Care Burning Plant Operator Name Role Phone Ivan Hicks MD Unavailable [phone] Oneal Sheriff MD Primary Care Provider [phone] Rylee DANIEL MD, Courtney Unavailable [phone] Clark Almendarez MD Unavailable Reason for Visit * Reason Comments Medication Refill Encounter Details Date Type Department Care Team (Late st Contact Info) Description 11/03/2021 Refill [facility] [address]2 [place] [address] Theresa Liang APRN, CLIENT LIAISON [address] [address] Medication Refill Social History Tobacco [...] a change Department associated with goal: [facility] Steps to achieve goal: [...] a change Department associated with goal: [facility] Steps to achieve goal: [...] - 19 05/17/2023 05/17/2023 05/17/2023 5:58 PM ACCOUNT GROUP SUPERVISOR COVID - 19 Confirmed 05/17/2023 05/17/2023 023 12:16 AM ACCOUNT GROUP SUPERVISOR Assessment Noted Time PHQ-9 Depression Total Score: 0 03/11/20 11:04 AM CDT documented as of this encounter Care Teams Burning Plant Operator Relationship Specialty Start Date End Date Oneal Sheriff MD [address] [place] [address] PCP - General Family Medicine 06/05/21 Ivan Hicks MD Consulting Physician Psychiatry 03/22/17 Denise Mckee III, MD [address] [place] [address] Consulting Physician Urology 10/12/22 Clark Almendarez MD [address] [place] [address] Consulting Physician Pulmonary Disease 02/08/23 documented as of this encounter
--- OUTSIDE RECORDS SUMMARY | 2024-12-30 09:09 | XMS_ITS | Clinical Summary ---
Author Organization [facility] Address [address] [facility] [place] [address] Care Team Providers Care Engineering Project Manager Name Role Phone Kenny Kenny MD Primary Care Provider [phone] Source Comments [facility],non-owned Affiliates and Associated Physician Practices is amultiple site organization consisting of ambulatory clinics and hospital sitesin [place], [place], [place] and [place]. This disclosure is being madepursuant to the Care Everywhere program and may not contain all information available regarding this patient. Last updated 18.[facility] Active Problems Problem Noted Date Diagnosed Date Peritonsillar abscess 01/19/2020 Social History Tobacco Use Types Packs/Day Years Used Date Smoking Tobacco: Never Assessed Sex and Gender Information Value Date Recorded Sex Assigned at Not on file Legal Sex Male 3:37 PM CDT Gender Identity Not on file Sexual Orientation Not on file Plan of Treatment Health Maintenance Due Date Last Done Comments COLOGUARD (AGES 45-75) - COL ON CA SCREENING 1970 COLON MONITORING 1970 COLONOSCOPY - COLON CA SCREENING 1970 CT COLONOGRAPHY - COLON CA SCREENING 1970 Colorectal Cancer Screening 1970 FIT - COLON CA SCREENING 1970 FLEX SIG - COLON CA SCREENING 1970 LIPID TESTING 1970 HIV SCREENING 1985 HEPATITIS C SCREENING 01/31/1988 DTAP/TDAP/TD VACCINES (1 - Tdap) 1989 HEPATITIS B VACCINE (1 of 3 - 19+ 3-dose series) 1989 PNEUMOCOCCAL VACCINE 50+ (1 of 1 - PCV) 02/05/2020 ZOSTER VACCINE (1 of 2) 02/05/2020 COVID-19 VACCINE ( - 2023-2 5 season) 2024 DEPRESSION SCREENING 06/28/2024 INFLUENZA VACCINE (#1) 2025 HIB VACCINE Aged Out No longer eligi ble based on patient's age to complete this topic HPV VACCINE Aged Out No longer eligi ble based on patient's age to complete this topic MENINGOCOCCAL (Group B) VACC INE SHARED DECISION-MAKING Aged Out No longer eligibl e based on patient's age to complete this topic MENINGOCOCCAL GROUPS A/C/Y/W VACCINE Aged Out No longer eligible b ased on patient's age to complete this topic Insurance [facility] Care Teams Engineering Project Manager Relationship Specialty Start Date End Date Kenny Kenny MD PCP - General 01/12/18
--- OUTSIDE RECORDS SUMMARY | 2024-12-30 09:09 | XMS_ITS | Encounter Summary ---
Author Organization [facility] Address [address] [place] [address] Phone Care Team Providers Care Crossbar Switch Adjuster Name Role Phone Ivan Hicks MD Unavailable [phone] Sandra Mejía Primary Care Provider + Oneal Sheriff MD Primary Care Provider [phone] Rylee DANIEL MD, Courtney Unavailable [phone] Clark Almendarez MD Unavailable Reason for Visit * Reason Comments Medication Refill Encounter Details Date Type Department Care Team (Late st Contact Info) Description 04/07/2021 Refill [facility] - Family Medicine [facility] [address] [place] [address] Sandra Mejía, [facility] [address] [place] [address] Medication Refill Social History Tobacco Use Types [...] have Coronavirus / COVID-19? No / Unsure 04/02/2021 12:51 PM CDT documented as of this encounter Miscellaneous Notes * Telephone Encounter - Theresa Liang APN, CNP - 04/07/2021 1:59 PM CDT Approved, Lipid Panel was completed on 02/15 * Telephone Encounter - Lula De Leon RN - 04/07/2021 1:55 PM CDT Medication failed the protocol, provider to review and approve the medication order if appropriate. Requested Prescriptions Pending Prescriptions Disp Refills atorvastatin (LIPITOR) 20 MG Tablet [Pharmacy Med Name: ATORVASTATIN CALCIUM 20MG TABLET] 90 Tablet1 Sig: TAKE 1 TAB BY MOUTH DAILY. Hmg CoA Reductase Inhibitors Protocol Failed - 04/07/2021 1:55 PM Failed - Lipid panel in past 12 months LDL Date Value Ref Range Status 02/07/2020 102 5 - 130 mg/dL Final HDL CHOLESTEROL Date Value Ref Range Status 02/07/2020 63.9 >40 mg/dL Final CHOLESTEROL Date Value Ref Range Status 02/07/2020 194 <=200 mg/dL Final TRIGLYCERIDES Date Value Ref Range Status 02/07/2020 142 <150 mg/dL Final VLDL Date Value Ref Range Status 02/07/2020 28 5 - 55 mg/dL Final CHOL/HDL RATIO Date Value Ref Range Status 02/07/2020 3.0 0.0 - 4.4 Final NON-HDL CHOLESTEROL Date Value Ref Range Status 02/07/2020 130.1 (H) <130 mg/dL Final Passed - Visit with relevant provider in past 12 months or upcoming 90 days Recent Visits Date Type Provider Dept 10/29/20 Office Visit Sandra Mejía, [facility] 10/17/20 Office Visit Sandra Mejía, PAC [facility] 10/03/20 Office Visit Sandra Mejía PAC [facility] Showing recent visits within past 365 days and meeting all other requirements Future Appointments No visits were found meeting these conditions. Showing future appointments within next 90 days and meeting all other requirements Refused Prescriptions Disp Refills dilTIAZem (CARDIZEM CD) 120 MG CAPSULE SR 24 HR [Pharmacy Med Name: DILTIAZEM HYDROCHLORIDE ER 120MG ER CAPSULE ER 24HR] 90 Capsule 14 Sig: TAKE 1 CAPSULE BY MOUTH D Calcium-Channel Blockers Protocol Passed - 04/07/2021 1:55 PM Passed - BP on record in the past year Clinician-entered: BP Readings from Last 3 Encounters: 10/29/20 108/64 10/26/20 163/88 10/17/20 (!) 150/100 Patient-entered: No data recorded Passed - Visit with relevant provider in past 12 months or upcoming 90 days Recent Visits Date Type Provider Dept 10/29/20 Office Visit Sandra Mejía PAC [facility] 10/17/20 Office Visit Sandra Mejía PAC [facility] 10/03/20 Office Visit Sandra Mejía PAC [facility] Showing recent visits within past 365 days and meeting all other requirements Future Appointments No visits were found meeting these conditions. Showing future appointments within next 90 days and meeting all other requirements * Telephone Encounter - Lula De Leon RN - 04/07/2021 1:54 PM CDT Name from pharmacy: DILTIAZEM HYDROCHLORIDE ER 120MG ER CAPSULE ER 24HR Will file in chart as: dilTIAZem (CARDIZEM CD) 120 MG CAPSULE SR 24 HR The original prescription was discontinued on 10/03/2020 by Sandra Mejía PAC for the following reason: Dose adjustment. documented in this encounter Plan of Treatment Not on file documented as of this encounter Goals Goal Patient Goal Type Associated Problems Recent Progress Patient-Stated? Author Self-Esteem Behavioral Health Improving( 3:21 PM CDT) Yes Ana Laura Odom LCSW Note: Goal Reviewed with: patient today Readiness to change: Thinking about making a change Department associated with goal: [facility] Steps to achieve goal: [...] a change Department associated with goal: [facility] Steps to achieve goal: [...] - 19 05/17/2023 05/17/2023 05/17/2023 5:58 PM PODIATRIC MEDICINE DOCTOR COVID - 19 Confirmed 05/17/2023 05/17/2023 023 12:16 AM PODIATRIC MEDICINE DOCTOR Assessment Noted Time PHQ-9 Depression Total Score: 0 03/11/20 20 11:04 AM CDT documented as of this encounter Care Teams Crossbar Switch Adjuster Relationship Specialty Start Date End Date Sandra Mejía PAC [address] [place] [address] PCP - General Physician Fisher Diving 02/07/20 06/04/21 Oneal Sheriff MD [address] [place] [address] PCP - General Family Medicine 06/05/21 Ivan Hicks MD Consulting Physician Psychiatry 03/22/17 Denise Mckee III, MD [address] [place] [address] Consulting Physician Urology 10/12/22 Clark Almendarez MD [address] [place] [address] Consulting Physician Pulmonary Disease 02/08/23 documented as of this encounter
--- OUTSIDE RECORDS SUMMARY | 2024-12-30 09:09 | XMS_ITS | Encounter Summary ---
Author Organization [facility] Address [address] [place] [address] Phone Care Team Providers Care Silk Weaver Name Role Phone Ivan Hicks MD Unavailable [phone] Oneal Sheriff MD Primary Care Provider [phone] Rylee DANIEL MD, Courtney Unavailable Clark Almendarez MD Unavailable Reason for Visit * Reason Comments Medication Refill Encounter Details Date Type Department Care Team (Late st Contact Info) Description 04/09/2022 Refill [facility] [address] [place] [address] Theresa Liang APRN, ASSISTANT STRENGTH COACH [address] [address] Medication Refill Social History Tobacco [...] Encounter - Lula De Leon RN - 04/09/2022 10:[address] Sheriff is PCP Pharmacy notified documented in this encounter Plan of Treatment Not on file documented as of this encounter Goals Goal Patient Goal Type Associated Problems Recent Progress Patient-Stated? Author Self-Esteem Behavioral Health Improving( 3:21 PM CDT) Yes Ana Laura Odom LCSW Note: Goal Reviewed with: patient today Readiness to change: Thinking about making a change Department associated with goal: [facility] Steps to achieve goal: [...] making a change Department associated with goal: [facility] Steps to achieve goal: [...] - 19 05/17/2023 05/17/2023 05/17/2023 5:58 PM PULLER THROUGH COVID - 19 Confirmed 05/17/2023 05/17/2023 023 12:16 AM PULLER THROUGH Assessment Noted Time PHQ-9 Depression Total Score: 0 03/11/20 20 11:04 AM CDT documented as of this encounter Care Teams Silk Weaver Relationship Specialty Start Date End Date Oneal Sheriff MD [address] [place] [address] PCP - General Family Medicine 06/05/21 Ivan Hicks MD Consulting Physician Psychiatry 03/22/17 Denise Mckee III, MD [address] [place] [address] Consulting Physician Urology 10/12/22 Clark Almendarez MD [address] [place] [address] Consulting Physician Pulmonary Disease 02/08/23 documented as of this encounter
--- OUTSIDE RECORDS SUMMARY | 2024-12-30 09:09 | XMS_ITS | Continuity of Care Document ---
Author Organization [facility] Address [address] [place] [address] Phone Care Team Providers Care Black Off Worker Name Role Phone Nahid NUÑEZ MD, Chris Unavailable Unavailable Allergies, Adverse Reactions, Alerts Substance Reaction Status Criticality No Known Drug Allergies Active No I nformation Procedures Procedure Date Measure Blood Oxygen Level X-ray exam of ribs, Unilateral 2 Views O Chest x-ray, two views Office/outpatient visit,[facility] 2011 Advance Directives Directive Yes / No Effective Date File Name No Information Encounters Encounter Description Practice Location Reason(s) For Visit Diagnoses Date Provider Providers Copied on Encounter [facility], [address], [id number], tel:[phone] [facility] No Information 3 Nahid Perez. [address] [facility] [place] [address], [place], [place], [id number] , [place]. tel:[phone] Office/outpat ient visit,[facility], [address], [id number], tel:[phone] [facility] FRACTURE THREE RIBS-CLOSBronch itis, AcuteShortness of BreathChest Pain, Unspecified 2 Omid Martines. [address] [facility] [place] [address], [place], [place], [id number] , [place]. tel:[phone] Family History Family Member Type Diagnosis Age At Onset No Information Payers Payer name Insurance type Covered alliance party ID Authoriza tikrystal(s) 3MA Claims [id number] Social History Type Description Quantity Date Captured Comments Sex Male Smoking Status No Information Chief Complaint And Reason For Visit No Information Reason For Referral Reason For Referral No Information History Of Present Illness Encounter Date Complaint History Of Prese nt Illness No Information Functional Status Date Functional Assessmen t No Information Instructions Date Instruction Additional Infor mation No Information Assessments Type Assessment Date No Information Patient Care Teams Name Effective Dates (start - stop) Status Members No Information
--- OUTSIDE RECORDS SUMMARY | 2024-12-30 09:09 | XMS_ITS | Encounter Summary ---
Author Organization [facility] Address [address] [place] [address] Phone Care Team Providers Care Waste Machine Tender Name Role Phone Ivan Hicks MD Unavailable Oneal Sheriff MD Primary Care Provider [phone] Rylee DANIEL MD, Courtney Unavailable Clark Almendarez MD Unavailable Reason for Visit * Reason Comments Medication Refill Encounter Details Date Type Department Care Team (Late st Contact Info) Description 04/17/2022 Refill [facility] Family [facility] [address]2 [place] [id number] Sandra Mejía, [facility] [address] [place] [address] Medication Refill Social History Tobacco Use Types [...] Encounter - Lula De Leon RN - 04/17/2022 1:55 PM CDT PCP is Fahad Coulter MD documented in this encounter Plan of Treatment Not on file documented as of this encounter Goals Goal Patient Goal Type Associated Problems Recent Progress Patient-Stated? Author Self-Esteem Behavioral Health Improving( 3:21 PM CDT) Yes Ana Laura Odom LCSW Note: Goal Reviewed with: patient today Readiness to change: Thinking about making a change Department associated with goal: [facility] Steps to achieve [...] making a change Department associated with goal: [facility] Steps to achieve [...] - 19 05/17/2023 05/17/2023 05/17/2023 5:58 PM TURBINE SUBASSEMBLER COVID - 19 Confirmed 05/17/2023 05/17/2023 023 12:16 AM TURBINE SUBASSEMBLER Assessment Noted Time PHQ-9 Depression Total Score: 0 03/11/20 20 11:04 AM CDT documented as of this encounter Care Teams Waste Machine Tender Relationship Specialty Start Date End Date Oneal Sheriff MD [address] [place] [address] PCP - General Family Medicine 06/05/21 Ivan Hicks MD Consulting Physician Psychiatry 03/22/17 Denise Mckee III, MD [address] [place] [address] Consulting Physician Urology 10/12/22 Clark Almendarez MD [address] [place] [address] Consulting Physician Pulmonary Disease 02/08/23 documented as of this encounter
--- OUTSIDE RECORDS SUMMARY | 2024-12-30 09:09 | XMS_ITS | Encounter Summary ---
Author Organization [facility] Address [address] [place] [address] Phone Care Team Providers Care Safety Spec Name Role Phone Ivan Hicks MD Unavailable [phone] Oneal Sheriff MD Primary Care Provider [phone] Rylee DANIEL MD, Courtney Unavailable Clark Almendarez MD Unavailable Reason for Visit * Reason Comments Medication Refill Encounter Details Date Type Department Care Team (Late st Contact Info) Description 11/15/2021 Refill [facility] [address] [place] [address] Theresa Liang APRN, GROCERY BAGGER [address] [address] Medication Refill Social History Tobacco [...] Encounter - Lula De Leon RN - 11/17/2021 9:43 AM CDT PCP Oneal Sheriff documented in this encounter Plan of Treatment Not on file documented as of this encounter Goals Goal Patient Goal Type Associated Problems Recent Progress Patient-Stated? Author Self-Esteem Behavioral Health Improving( 3:21 PM CDT) Yes Ana Laura Odom LCSW Note: Goal Reviewed with: patient today Readiness to change: Thinking about making a change Department associated with goal: [facility] Steps to [...] making a change Department associated with goal: [facility] Steps to [...] - 19 05/17/2023 05/17/2023 05/17/2023 5:58 PM TRANSPLANT NURSE PRACTITIONER COVID - 19 Confirmed 05/17/2023 05/17/2023 023 12:16 AM TRANSPLANT NURSE PRACTITIONER Assessment Noted Time PHQ-9 Depression Total Score: 0 03/11/20 20 11:04 AM CDT documented as of this encounter Care Teams Safety Spec Relationship Specialty Start Date End Date Oneal Sheriff MD [address] [place] [address] PCP - General Family Medicine 06/05/21 Ivan Hicks MD Consulting Physician Psychiatry 03/22/17 Denise Mckee III, MD [address] [place] [address] Consulting Physician Urology 10/12/22 Clark Almendarez MD [address] [place] [address] Consulting Physician Pulmonary Disease 02/08/23 documented as of this encounter
--- OUTSIDE RECORDS SUMMARY | 2024-12-30 09:09 | XMS_ITS | Encounter Summary ---
Author Organization [facility] Address [address] [place] [address] Phone Care Team Providers Care Infantry Assaultman Name Role Phone Ivan iHcks MD Unavailable Oneal Sheriff MD Primary Care Provider [phone] Rylee DANIEL MD, Courtney Unavailable Clark Almendarez MD Unavailable Reason for Visit * Reason Comments Medication Refill Encounter Details Date Type Department Care Team (Late st Contact Info) Description 05/10/2022 Refill [facility] [address] [place] [phone] Sandra Mejía, [facility] [address] [place] [address] Medication Refill Social History Tobacco Use Types [...] Recorded In the last 10 days, have karla u been in contact with someone who was confirmed or suspected to have Coronavirus/COVID-19? No / Unsure 04/27/2022 11:22 AM CDT documented as of this encounter Miscellaneous Notes * Telephone Encounter - Mayra Ko RN - 05/11/2022 11:15 AM MERGERS AND ACQUISITIONS BANKER No longer under provider's care. ERS AND ACQUISITIONS BANKER documented in this encounter Plan of Treatment Not on file documented as of this encounter Goals Goal Patient Goal Type Associated Problems Recent Progress Patient-Stated? Author Self-Esteem Behavioral Health Improving( 3:21 PM CDT) Yes Ana Laura Odom LCSW Note: Goal Reviewed with: patient today Readiness to change: Thinking about making a change Department associated with goal: [facility] Steps to achieve [...] a change Department associated with goal: [facility] Steps to achieve [...] - 19 05/17/2023 05/17/2023 05/17/2023 5:58 PM MERGERS AND ACQUISITIONS BANKER COVID - 19 Confirmed 05/17/2023 05/17/2023 023 12:16 AM MERGERS AND ACQUISITIONS BANKER Assessment Noted Time PHQ-9 Depression Total Score: 0 03/11/20 11:04 AM CDT documented as of this encounter Care Teams Infantry Assaultman Relationship Specialty Start Date End Date Oneal Sheriff MD [address] [place] [address] PCP - General Family Medicine 06/05/21 Ivan Hicks MD Consulting Physician Psychiatry 03/22/17 Denise Mckee III, MD [address] [place] [address] Consulting Physician Urology 10/12/22 Clark Almendarez MD [address] [place] [address] Consulting Physician Pulmonary Disease 02/08/23 documented as of this encounter
--- OUTSIDE RECORDS SUMMARY | 2024-12-30 09:09 | XMS_ITS | Encounter Summary ---
Author Organization [facility] Address [address] [place] [address] Phone Care Team Providers Care Assistant Professor Of Geography Name Role Phone Ivan Hicks MD Unavailable [phone] Oneal Sheriff MD Primary Care Provider [phone] Rylee DANIEL MD, Courtney Unavailable Clark Almendarez MD Unavailable Reason for Visit * Reason Comments Medication Refill Encounter Details Date Type Department Care Team (Late st Contact Info) Description 11/07/2021 Refill [facility] - [facility] [address] [place] [address] Theresa Linag APRN, IRON CASTER [address] [address] Medication Refill Social History Tobacco [...] - Lula De Leon RN - 11/07/2021 11:54 AM CDT PCP Oneal Sheriff MD documented [...] - 19 05/17/2023 05/17/2023 05/17/2023 5:58 PM SOAP TENDER COVID - 19 Confirmed 05/17/2023 05/17/2023 023 12:16 AM SOAP TENDER Assessment Noted Time PHQ-9 Depression Total Score: 0 03/11/20 20 11:04 AM CDT documented as of this encounter Care Teams Assistant Professor Of Geography Relationship Specialty Start Date End Date Oneal Sheriff MD [address] [place] [address] PCP - General Family Medicine 06/05/21 Ivan Hicks MD Consulting Physician Psychiatry 03/22/17 Denise Mckee III, MD [address] [place] [address] Consulting Physician Urology 10/12/22 Clark Almendarez MD [address] [place] [address] Consulting Physician Pulmonary Disease 02/08/23 documented as of this encounter
--- OUTSIDE RECORDS SUMMARY | 2024-12-30 09:09 | XMS_ITS | Encounter Summary ---
Author Organization [facility] Address [address] [place] [address] Phone Care Team Providers Care Corporate Safety Director Name Role Phone Ivan Hicks MD Unavailable Oneal Sheriff MD Primary Care Provider [phone] Rylee DANIEL MD, Courtney Unavailable Clark Almendarez MD Unavailable Reason for Visit * Reason Comments Medication Refill Encounter Details Date Type Department Care Team (Late st Contact Info) Description 05/10/2022 Refill [facility] Pulmonology & Sleep Medicine [facility] [address] [place] [address] Clark Almendarez MD [address] [place] [address] Medication Refill Social History Tobacco [...] Telephone Encounter - Fide Najera RN - 05/11/2022 7:51 AM STOCK WORKER AND DELIVERER Medication failed the protocol, provider to review and approve the medication order if appropriate. Requested Prescriptions Pending Prescriptions Disp Refills predniSONE (DELTASONE) 10 MG Tablet [Pharmacy Med Name: PREDNISONE 10MG TABLET] 30 Tablet 3 Sig: TAKE 1 TABLET BY MOUTH DAILY. Not Delegated - Corticosteroids Protocol Failed - 05/10/2022 9:10 PM Failed - This refill cannot be delegated Passed - Visit with relevant provider in past 12 months or upcoming 90 days Recent Visits Date Type Provider Dept 12/17/21 Office Visit Clark Almendarez MD [facility] [address] Showing recent visits within past 365 [...] A DAY Inhaled Combinations Protocol Passed - 05/10/2022 9:10 PM Passed - Visit with relevant provider in past 12 months or upcoming 90 days Recent Visits Date Type Provider Dept 12/17/21 Office Visit Clark Almendarez MD [facility] [address] Showing recent visits within past 365 days and meeting all other requirements Future Appointments No visits were found meeting these conditions. Showing future appointments within next 90 days and meeting all other requirements Passed - Active short-acting beta agonist prescription K WORKER AND DELIVERER documented in this encounter Plan of Treatment Not on file documented as of this encounter Goals Goal Patient Goal Type Associated Problems Recent Progress Patient-Stated? Author Self-Esteem Behavioral Health Improving( 3:21 PM CDT) Yes Ana Laura Odom LCSW Note: Goal Reviewed with: patient today Readiness to change: Thinking about making a change Department associated with goal: [facility] Steps to achieve goal: [...] making a change Department associated with goal: [facility] Steps to achieve goal: [...] - 19 05/17/2023 05/17/2023 05/17/2023 5:58 PM STOCK WORKER AND DELIVERER COVID - 19 Confirmed 05/17/2023 05/17/2023 023 12:16 AM STOCK WORKER AND DELIVERER Assessment Noted Time PHQ-9 Depression Total Score: 0 03/11/20 20 11:04 AM CDT documented as of this encounter Care Teams Corporate Safety Director Relationship Specialty Start Date End Date Oneal Sheriff MD [address] [place] [address] PCP - General Family Medicine 06/05/21 Ivan Hicks MD Consulting Physician Psychiatry 03/22/17 Denise Mckee III, MD [address] [place] [address] Consulting Physician Urology 10/12/22 Clark Almendarez MD [address] [place] [address] Consulting Physician Pulmonary Disease 02/08/23 documented as of this encounter
--- OUTSIDE RECORDS SUMMARY | 2024-12-30 09:09 | XMS_ITS | Encounter Summary ---
Author Organization [facility] Address [address] [place] [address] Phone Care Team Providers Care Welding Machine Tender Name Role Phone Ivan Hicks MD Unavailable [phone] Oneal Sheriff MD Primary Care Provider [phone] Rylee DANIEL MD, Courtney Unavailable [phone] Clark Almendarez MD Unavailable Reason for Visit * Reason Comments Medication Refill Encounter Details Date Type Department Care Team (Late st Contact Info) Description 11/15/2021 Refill [facility] - Family Medicine [facility] [address] [place] [id number] Denise Winkler, PAC [address] [place] [address] Medication Refill Social History Tobacco [...] - Lula De Leon RN - 11/17/2021 9:39 AM CDT PCP oneal Sheriff documented in this encounter Plan of Treatment Not on file documented as of this encounter Goals Goal Patient Goal Type Associated Problems Recent Progress Patient-Stated? Author Self-Esteem Behavioral Health Improving( 3:21 PM CDT) Yes Ana Laura Odom LCSW Note: Goal Reviewed with: patient today Readiness to change: Thinking about making a change Department associated with goal: [facility] Steps to [...] a change Department associated with goal: [facility] Steps to [...] - 19 05/17/2023 05/17/2023 05/17/2023 5:58 PM WEDDING CONSULTANT COVID - 19 Confirmed 05/17/2023 05/17/2023 023 12:16 AM WEDDING CONSULTANT Assessment Noted Time PHQ-9 Depression Total Score: 0 03/11/20 11:04 AM CDT documented as of this encounter Care Teams Welding Machine Tender Relationship Specialty Start Date End Date Oneal Sheriff MD [address] [place] [address] PCP - General Family Medicine 06/05/21 Ivan Hicks MD Consulting Physician Psychiatry 03/22/17 Denise Mckee III, MD [address] [place] [address] Consulting Physician Urology 10/12/22 Clark Almendarez MD [address] [place] [address] Consulting Physician Pulmonary Disease 02/08/23 documented as of this encounter
--- OUTSIDE RECORDS SUMMARY | 2024-12-30 09:09 | XMS_ITS | Encounter Summary ---
Author Organization [facility] Address [address] [place] [address] Phone Care Team Providers Care Family And Consumer Science Professor Name Role Phone Ivan Hicks MD Unavailable [phone] Oneal Sheriff MD Primary Care Provider [phone] Rylee DANIEL MD, Courtney Unavailable [phone] Clark Almendarez MD Unavailable Reason for Visit * Reason Comments Medication Refill Encounter Details Date Type Department Care Team (Late st Contact Info) Description 07/22/2022 Refill [facility] - Family Medicine [facility] [address] [place] [id number] Sandra Mejía, [facility] [address] [place] [address] Medication Refill Social History Tobacco Use Types [...] suspected to have Coronavirus/COVID-19? No / Unsure 06/28/2022 12:19 PM MODULAR SET CREW MEMBER documented as of this encounter Miscellaneous Notes * Telephone Encounter - Sandra Mejía PAC - 07/22/2022 1:38 PM MODULAR SET CREW MEMBER Not in care LAR SET CREW MEMBER * Telephone Encounter - Chela Zarate RN - 07/22/2022 8:34 AM CST Medication failed the protocol, provider to review and approve the medication order if appropriate. Requested Prescriptions Pending Prescriptions Disp Refills metoprolol Succinate (TOPROL-XL) 25 MG TABLET SR 24 HR [Pharmacy Med Name: METOPROLOL SUCCINATE ER 25MG ER TABLET ER 24HR] 30 Tablet 10 Sig: TAKE 1 TABLET BY MOUTH EVERY DAY Beta-Blockers Protocol Failed - 07/22/2022 8:16 AM Failed - Visit with relevant provider in past 12 months or upcoming 90 days Recent Visits No visits were found meeting these conditions. Showing recent visits within past 365 days and meeting all other requirements Future Appointments No visits were found meeting these conditions. Showing future appointments within next 90 days and meeting all other requirements Passed - BP on record in the past year Clinician-entered: BP Readings from Last 3 Encounters: 06/28/22 120/80 02/01/22 (!) 153/111 12/17/21 180/90 Patient-entered: No data recorded LAR SET CREW MEMBER documented in this encounter Plan of Treatment Not on file documented as of this encounter Goals Goal Patient Goal Type Associated Problems Recent Progress Patient-Stated? Author Self-Esteem Behavioral Health Improving( 3:21 PM CDT) Yes Ana Laura Odom, DIRECTOR BUSINESS TRAVEL Note: Goal Reviewed with: patient today Readiness to change: Thinking about making a change Department associated with goal: [facility] Steps to achieve [...] Depression Depression On track(2020 3:21 PM CDT) Ana Laura Bowden, DIRECTOR BUSINESS TRAVEL Note: to have reduction of anxiety and depression symptoms. Goal Reviewed with: patient today Readiness to change: Thinking about making a change Department associated with goal: [facility] Steps to achieve [...] - 19 05/17/2023 05/17/2023 05/17/2023 5:58 PM MODULAR SET CREW MEMBER COVID - 19 Confirmed 05/17/2023 05/17/2023 023 12:16 AM MODULAR SET CREW MEMBER Assessment Noted Time PHQ-9 Depression Total Score: 0 03/11/20 11:04 AM CDT documented as of this encounter Care Teams Family And Consumer Science Professor Relationship Specialty Start Date End Date Oneal Sheriff MD [address] [place] [address] PCP - General Family Medicine 06/05/21 Ivan Hicks MD Consulting Physician Psychiatry 03/22/17 Denise Mckee III, MD [address] [place] [address] Consulting Physician Urology 10/12/22 Clark Almendarez MD [address] [facility] [address] Consulting Physician Pulmonary Disease 02/08/23 documented as of this encounter
--- OUTSIDE RECORDS SUMMARY | 2024-12-30 09:09 | XMS_ITS | Encounter Summary ---
Author Organization [facility] Address [address] [place] [address] Phone Care Team Providers Care Program Production Specialist Name Role Phone Ivan Hicks MD Unavailable [phone] Oneal Sheriff MD Primary Care Provider [phone] Rylee DANIEL MD, Courtney Unavailable Clark Almendarez MD Unavailable Reason for Visit * Reason Comments Medication Refill Encounter Details Date Type Department Care Team (Late st Contact Info) Description 01/05/2022 Refill [facility] - Family Medicine [facility] [address] [place] [address] Theresa Liang APRN, INSPECTOR FLOOR SUB ASSEMBLY [address] [address] Medication Refill Social History Tobacco [...] suspected to have Coronavirus/COVID-19? No / Unsure 12/17/2021 9:55 AM CDT documented as of this encounter Miscellaneous Notes * Telephone Encounter - Lula De Leon RN - 01/06/2022 11:[address] Sheriff documented in this encounter Plan of Treatment Not on file documented as of this encounter Goals Goal Patient Goal Type Associated Problems Recent Progress Patient-Stated? Author Self-Esteem Behavioral Health Improving( 3:21 PM CDT) Yes Ana Laura Odom LCSW Note: Goal Reviewed with: patient today Readiness to change: Thinking about making a change Department associated with goal: [facility] Steps to [...] change Department associated with goal: [facility] Steps to [...] 19 05/17/2023 05/17/2023 05/17/2023 5:58 PM ACCOUNT RESOLUTION ANALYST COVID - 19 Confirmed 05/17/2023 05/17/2023 023 12:16 AM ACCOUNT RESOLUTION ANALYST Assessment Noted Time PHQ-9 Depression Total Score: 0 03/11/20 11:04 AM CDT documented as of this encounter Care Teams Program Production Specialist Relationship Specialty Start Date End Date Oneal Sheriff MD [address] [place] [address] PCP - General Family Medicine 06/05/21 Ivan Hicks MD Consulting Physician Psychiatry 03/22/17 Denise Mckee III, MD [address] [place] [address] Consulting Physician Urology 10/12/22 Clark Almendarez MD [address] [place] [address] Consulting Physician Pulmonary Disease 02/08/23 documented as of this encounter
--- OUTSIDE RECORDS SUMMARY | 2024-12-30 09:09 | XMS_ITS | Clinical Summary ---
Author Organization [facility] Address [address] [place] [address] Phone Care Team Providers Care International First Officer Name Role Phone Ivan Hicks MD Unavailable [phone] Oneal Sheriff MD Primary Care Provider [phone] Rylee DANIEL MD, Courtney Unavailable [phone] Clark Almendarez MD Unavailable Allergies No known active allergies Medications Respiratory Therapy Supplies (Nebulizer) Device Use as directed 1 Each 1 Active Cyanocobalamin (VITAMIN B12 PO) Take 1,000 mcg by mouth daily. 1 Active busPIRone (BUSPAR) 5 MG TabletIndicatio ns:Anxiety TAKE 1 TABLET BY MOUTH 3 TIMES DAILY. 90 Tablet 5 1 Active nicotine (NICODERM CQ) 21 MG/24HR PATCH 24 HR APPLY 1 PATCH BY TRANSDERMAL ROUTE EVERY 24 HOURS. 42 Patch 1 Active Additional Information Patient not taking.Reported on 11/06/2024 gabapentin (NEURONTIN) 100 MG Capsule TAKE ONE (1) CAPSULE BY MOUTH THREE (3) TIMES DAILY NEEDED 90 Capsule 14 1 Active atorvastatin (LIPITOR) 20 MG Tablet TAKE 1 TAB BY MOUTH DAILY. 90 Tablet 1 1 Active metoprolol Succinate (TOPROL-XL) 25 MG TABLET SR 24 HR TAKE 1 TABLET BY MOUTH EVERY DAY 30 Tablet 10 2 Active FLUoxetine (PROzac) 10 MG Capsule Take 10 mg by mouth daily. Active dilTIAZem (CARDIZEM) 30 MG Tablet Take 1 Tablet by mouth nightly. 30 Tablet 2 Active ipratropium-alb uterol (DUO-NEB) 0.5-2.5 (3) MG/3ML Solution INHALE 3 ML(ONE VIAL) BY NEBULIZATION ROUTE 4 TIMES DAILY. 360 mL 5 3 Active fluticasone-juan miguel meterol (Advair Diskus) 250-50 MCG/ACT AEROSOL POWDER, BREATH ACTIVATED take 1 Puff by inhalation 2 times daily. 60 Each 3 3 Active Additional Information Patient not taking.Reported on 11/06/2024 albuterol (PROVENTIL, VENTOLIN) (2.5 MG/3ML) 0.083% Nebulizer Soln 3 mL by Nebulization route every 6 hours as needed for Wheezing. 360 mL 5 3 Active albuterol (ProAir HFA) 108 (90 Base) MCG/ACT Aerosol SolutionIndicat ions:Panlobular emphysema (HCC) take 2 Puffs by inhalation every 4 hours as needed for Wheezing. 18 g 1 4 Active aspirin 81 MG Chewable Tablet Take 1 Tablet by mouth daily. 5 Active ondansetron (ZOFRAN-ODT) 4 MG TABLET DISPERSIBLE Take 1 Tablet by mouth every 6 hours as needed for Nausea - 1st line. 10 Tablet 5 Active Additional Information Patient not taking.Reported on 11/06/2024 polyethylene glycol (GLYCOLAX, MIRALAX) 17 g PackIndications :Constipation Take 1 Packet by mouth 2 times daily as needed for Constipation - 1st line. Dissolve in 4-8 oz of liquid. Indications: Constipation 90 Packet 5 Active Empagliflozin (JARDIANCE) 10 MG Tablet Take 1 Tablet by mouth daily. 30 Tablet 5 Active Additional Information Patient not taking.Reported on 11/06/2024 spironolactone (ALDACTONE) 25 MG Tablet Take 0.5 Tablets by mouth daily. 90 Tablet 5 Active predniSONE (DELTASONE) 10 MG Tablet Take 1 Tablet by mouth daily. 30 Tablet 5 5 Active Active Problems Problem Noted Date Diagnosed Date Severe malnutrition 09/25/2024 Chronic respiratory failure 09/25/2024 Supplemental oxygen dependent 09/25/2024 Tobacco use disorder, continuous 09/25/2024 Chronic congestive heart donato lure with left ventricular diastolic dysfunction 09/25/2024 Methamphetamine use disorder, moderate, dependen ce 02/28/2021 Bipolar affective disorder, depressed, moderate degree 10/31/2020 Accelerated hypertension 10/24/2020 Pulmonary HTN 02/26/2020 Vitamin B12 deficiency 02/07/2020 Vitamin D deficiency 02/07/2020 BPH with obstruction/lower urinary tract symptom s 07/28/2019 PALOMA (obstructive sleep apnea) 07/14/2018 Sacroiliac joint pain 09/15/2017 Sepsis 08/03/2017 Acute colitis 08/03/2017 Acute cystitis 08/03/2017 Elevated liver enzymes 08/03/2017 Elevated lipase 08/03/2017 Dysuria 02/24/2017 Foraminal stenosis of lumbosacral region, severe L5-S1 12/18/2016 Overview (12/18/2016): Possibly impinging on bilateral L5 nerve roots Anterolisthesis, L5-S1 11/09/2016 Drug abuse 06/28/2016 Overview (02/22/2017): Cocaine, amphetamines, marijuana ASHD (arteriosclerotic heart disease) 06/04/2016 COPD (chronic obstructive pulmonary disease) Hypertension, essential 07/12/2015 Hypothyroidism 07/12/2015 Lipoma of the adipose tissue Overview (05/01/2015): S/p excision, doing well Hyperlipidemia Resolved Problems Problem Noted Date Diagnosed Date Resolved Date COPD exacerbation 09/22/2024 11/06/2024 Acute on chronic respiratory failure with hypoxia 09/22/2024 11/06/2024 Acute on chronic respiratory failure with hypoxia 10/24/2020 10/26/2020 Mucus plugging of bronchi 10/24/2020 Tobacco dependence syndrome 08/03/2017 11/06/2024 Encounters Date Type Department Care Team Description 11/06/2024 1:45 PM CDT Office Visit [facility] - Pulmonology & Sleep Medicine [facility] [address] [place] [id number] Clark Almendarez MD Chronic respiratory failure, unspecified whether with hypoxia or hypercapnia (Primary Dx); Other emphysema (HCC); Hypertension, essential; Tobacco use disorder, continuous Discharge Disposition: Discharged to home or Selfcare 11/06/2024 Travel from Last 3 Months Immunizations Immunization Administration Dates Next Due Covid-19, Mrna, Lnp-s, PF, 1 00 mcg/0.5 mL Dose (Moderna) 09/23/2020 Influenza Vaccine greater than 3 yrs 04/17/2015 Influenza Vaccine, Quadrivalent, PF 03/21/2021,0 03/11/2020,06/04/2016 Influenza Vaccine,unspecified Formulation 2021 Influenza, Injectable, Quadrivalent 04/09/2022,1 ,05/19/2017 Influenza, Seasonal, Injectable, Undefined 04/17 PNEUMONIA ADULT IM [id number] 10/11/2015 PUR FLU 3+ YRS PRES FREE QUAD IM 06/04/2016 Pneumococcal Vaccine Adult - 23 Valent 7,10/11/2015 TDAP Vaccine 09/10/2021,12/09/2016,06/28/2013 Family History Medical History Relation Name Comments No Known Problems Brother Heart Attack Father Hypertension Father Cancer Mother LUNG Chronic Obstructive Pulmonary Disease Mother Congestive Heart Failure Mother Kidney Cancer Mother Lung Cancer Mother No Known Problems Sister Relation Name Status Comments Brother Alive Father Mother Sister Alive Social History Tobacco Use Types Packs/Day Years Used Date Smoking Tobacco: Every Day Cigarettes 0.5 30 Smokeless Tobacco: Never Tobacco Cessation:Ready to Q uit: Yes; Counseling Given: Yes Comments:Hasn't smoked cigarettes in 1 week (as of 09/22) Alcohol Use Standard Drinks/Week Comments No 0 (1 standard drink = 0.6 oz pur e alcohol) [facility] Utilities Answer Date Recorded In the past 12 months has e electric, gas, oil, or water company threatened to shut off services in your home? Patient declined 09/22/2024 Overall Financial Resource Strain (CARDIA) Answe r Date Recorded How hard is it for you to pa y for the very basics like food, housing, medical care, and heating? Patient declined 09/22/2024 PHQ-2 Answer Date Recorded Total Score - Questions 1-9 0 02/26 Exercise Vital Sign Answer Date Recorde d On average, how many days pe r week do you engage in moderate to strenuous exercise (like a brisk walk)? Patient declined On average, how many minutes do you engage in exercise at this level? Patient declined 09/22/2024 Hunger Vital Sign Answer Date Recorded Within the past 12 months, y ou worried that your food would run out before you got the money to buy more. Patient declined Within the past 12 months, t he food you bought just didn't last and you didn't have money to get more. Patient declined PRAPARE - Transportation Answer Date Re corded In the past 12 months, has l ack of transportation kept you from medical appointments or from getting medications? Patient declined 09/22/2024 In the past 12 months, has l ack of transportation kept you from meetings, work, or from getting things needed for daily living? Patient declined 09/22/2024 Housing Stability Vital Sign Answer Eulalio e Recorded In the last 12 months, was t here a time when you were not able to pay the mortgage or rent on time? Patient declined 09/23/19 25 In the past 12 months, how m any times have you moved where you were living? 0 09/22/2024 At any time in the past 12 m [facility], were you homeless or living in a senior living (including now)? Patient declined 09/22/2024 Sexually Active Control Partners Comments Not Currently Female Sex and Gender Information Value Date Recorded Sex Assigned at Male 02/08/2023 1:58 PM CDT Legal Sex Male 8:43 PM CDT Gender Identity Male 02/08/2023 1:58 PM CDT Sexual Orientation Not on file Last Filed Vital Signs Vital Sign Reading Time Taken Comments Blood Pressure 126/72 11/06/2024 2:34 PM CDT Pulse 82 11/06/2024 2:34 PM CDT Temperature 36.7 C (98 F) 11/06/2024 2:34 PM CDT Respiratory Rate 16 11/06/2024 2:34 PM CDT Oxygen Saturation 97% 11/06/2024 2:34 PM CDT Inhaled Oxygen Concentration - - Weight 48.5 kg (107 lb) 11/06/2024 2:34 PM CDT Height 160 cm (5' 3) 11/06/2024 2:34 PM CDT Body Mass Index 18.95 11/06/2024 2:34 PM CDT Plan of Treatment Health Maintenance Due Date Last Done Comments Hepatitis C Virus (HCV) Screening 1970 Hepatitis B Immunization (1 of 3 - 19+ 3-dose series) 1989 Cologuard 2015 Colonoscopy 2015 Colorectal Cancer Screening 2015 Immunochemical Fecal Occult Blood 2015 Pneumococcal Immunization (50+ years) (2 of 2 - PCV) 05/19/2018 05/19/2017, 10/11/2015, 10/11/2015 Zoster Immunization (1 of 2) 02/05/2020 SARS-COV-2 Immunization ( - season) 2024 04/09/2022, 06/12/2021, 10/21/2020, Additional history exists Influenza Immunization (Season Ended) 2025 04/28/2022, 04/09/2022, 03/21/2021, Additional history exists Td Immunization Every 10 Years (Adults With 1 Tdap) 09/11/2031 09/10/2021, 12/09/2016, 06/28/2013 Respiratory Syncytial Virus (RSV) Immunization (Adult) (1 - 1-dose 75+ series) 2045 Pneumococcal Immunization Combined Discontinued 05/19/2017, 10/11/2015, 10/11/2015 Human Papillomavirus (HPV) Immunization Aged Out No longer eligible based on patient's age to complete this topic Meningococcal Immunization (ACWY) Aged Out No longer eligible based on patient's age to complete this topic Rotavirus Immunization Aged Out No lo nger eligible based on patient's age to complete this topic Goals Goal Patient Goal Type Associated Problems Recent Progress Patient-Stated? Author Self-Esteem Behavioral Health Improving( 3:21 PM CDT) Yes Ana Laura Odom, MACHINE SILVER STRIPPER Note: Goal Reviewed with: patient today Readiness [...] track(2020 3:21 PM CDT) Ana Laura Bowden, MACHINE SILVER STRIPPER Note: to have reduction of anxiety and [...] and or cope with anxiety and depression. Medical Devices Implanted Type Area Water Tester Device Identifier Shelf Expiration Date Model / Serial / Lot Angioseal Vip 6fr - [id number] Implanted:Qty: 1 on 11/08/2015 by Nikki Mauricio MD at [facility] IMPLANT Right: Groin ST AMY / ATRIAL FIB 07/28/2016 [id number] / / [id number] Insurance [place]ID [place] Member Subscriber Plan / Payer (Ef fective 2024-Present) Name:Abimael Leung Relation to Subscriber:Self Name:Abimael Leung Payer ID:[id number] Group ID:Not on file Type:Not on file Address: [address] Advance Directives * Full Code (Latest Code Status on File) Date Activated Date Inactivated Comments 09/23/2024 1:06 PM CPR-Full Treat ment: FULL ARREST: Attempt Resuscitation/CPR wit intubation and mechanical ventilation. PRE-ARREST: Use entire range of life support measures to stabilize the patient. * Full Code Date Activated Date Inactivated Comments 10/24/2020 1:27 AM 10/26/2020 1:11 PM CPR-Full Whitney tment: FULL ARREST: Attempt Resuscitation/CPR wit intubation and mechanical ventilation. PRE-ARREST: Use entire range of life support measures to stabilize the patient. * Full Code Date Activated Date Inactivated Comments 01/17/2020 5:42 AM 01/20/2020 8:15 PM CPR-Full Garth atment: FULL ARREST: Attempt Resuscitation/CPR wit intubation and mechanical ventilation. PRE-ARREST: Use entire range of life support measures to stabilize the patient. * Full Code Date Activated Date Inactivated Comments 08/03/2017 12:51 PM 08/05/2017 8:35 PM CPR-Full Whitney tment: FULL ARREST: Attempt Resuscitation/CPR wit intubation and mechanical ventilation. PRE-ARREST: Use entire range of life support measures to stabilize the patient. Care Teams International First Officer Relationship Specialty Start Date End Date Oneal Sheriff MD [address] [place] [address] PCP - General Family Medicine 06/05/21 Ivan Hicks MD Consulting Physician Psychiatry 03/22/17 Denise Mckee III, MD [address] [place] [address] Consulting Physician Urology 10/12/22 Clark Almendarez MD [address] [place] [address] Consulting Physician Pulmonary Disease 02/08/23
--- OUTSIDE RECORDS SUMMARY | 2024-12-30 09:09 | XMS_ITS | Encounter Summary ---
Author Organization [facility] Address [address] [place] [address] Phone Care Team Providers Care Review Specialist Name Role Phone Ivan Hicks MD Unavailable [phone] Sandra Mejía Primary Care Provider + Oneal Sheriff MD Primary Care Provider [phone] Rylee DANIEL MD, Courtney Unavailable [phone] Clark Almendarez MD Unavailable Reason for Visit * Reason Comments Medication Refill Encounter Details Date Type Department Care Team (Late st Contact Info) Description 03/05/2021 Refill [facility] - Family Medicine [facility] [address] [place] [address] Sandra Mejía, [facility] [address] [place] [address] Medication Refill Social History Tobacco Use Types [...] have Coronavirus / COVID-19? No / Unsure 02/28/2021 1:04 PM CDT documented as of this encounter Miscellaneous Notes * Telephone Encounter - Zoraida Mckeon RN - 03/06/2021 9:55 AM CDT The original prescription was discontinued on 10/24/2020 by Shekhar Farias RN for the followingreason: Med List Clean Up * Telephone Encounter - Zoraida Mckeon RN - 03/06/2021 9:53 AM CDT Medication approved and signed per standing order protocol. documented in this encounter Plan of Treatment Not on file documented as of this encounter Goals Goal Patient Goal Type Associated Problems Recent Progress Patient-Stated? Author Self-Esteem Behavioral Health Improving( 3:21 PM CDT) Yes Ana Laura Odom LCSW Note: Goal Reviewed with: patient today Readiness to change: Thinking about making a change Department associated with goal: [facility] Steps to achieve goal: [...] a change Department associated with goal: [facility] Steps to achieve goal: [...] - 19 05/17/2023 05/17/2023 05/17/2023 5:58 PM TOY DEPARTMENT MANAGER COVID - 19 Confirmed 05/17/2023 05/17/2023 023 12:16 AM TOY DEPARTMENT MANAGER Assessment Noted Time PHQ-9 Depression Total Score: 0 03/11/20 20 11:04 AM CDT documented as of this encounter Care Teams Review Specialist Relationship Specialty Start Date End Date Sandra Mejía PAC [address] [place] [address] PCP - General Physician Forge Helper 02/07/20 06/04/21 Oneal Sheriff MD [address] [place] [address] PCP - General Family Medicine 06/05/21 Ivan Hicks MD Consulting Physician Psychiatry 03/22/17 Denise Mckee III, MD [address] [place] [address] Consulting Physician Urology 10/12/22 Clark Almendarez MD [address] [place] [phone] Consulting Physician Pulmonary Disease 02/08/23 documented as of this encounter
--- OUTSIDE RECORDS SUMMARY | 2024-12-30 09:09 | XMS_ITS | Encounter Summary ---
Author Organization [facility] Address [address] [place] [address] Phone Care Team Providers Care Rubble Placer Name Role Phone Ivan Hicks MD Unavailable Oneal Sheriff MD Primary Care Provider [phone] Rylee DANIEL MD, Courtney Unavailable Clark Almendarez MD Unavailable Reason for Visit * Reason Comments Medication Refill Encounter Details Date Type Department Care Team (Late st Contact Info) Description 07/14/2022 Refill [facility] [address] [place] [phone] Sandra Mejía, [facility] [address] [place] [address] Medication Refill Social History Tobacco Use Types [...] Coronavirus/COVID-19? No / Unsure 06/28/2022 12:19 PM BATTERY TEST ENGINEER documented as of this encounter Plan of [...] - 19 05/17/2023 05/17/2023 05/17/2023 5:58 PM BATTERY TEST ENGINEER COVID - 19 Confirmed 05/17/2023 05/17/2023 023 12:16 AM BATTERY TEST ENGINEER Assessment Noted Time PHQ-9 Depression Total Score: 0 03/11/20 20 11:04 AM CDT documented as of this encounter Care Teams Rubble Placer Relationship Specialty Start Date End Date Oneal Sheriff MD [address] [place] [address] PCP - General Family Medicine 06/05/21 Ivan Hicks MD Consulting Physician Psychiatry 03/22/17 Denise Mckee III, MD [address] [place] [address] Consulting Physician Urology 10/12/22 Clark Almendarez MD [address] [place] [id number] Consulting Physician Pulmonary Disease 02/08/23 documented as of this encounter
--- OUTSIDE RECORDS SUMMARY | 2024-12-30 09:09 | XMS_ITS | Encounter Summary ---
Author Organization [facility] Address [address] [place] [address] Phone Care Team Providers Care Reporting Process Consultant Name Role Phone Ivan Hicks MD Unavailable [phone] Sandra Mejía Primary Care Provider + Oneal Sheriff MD Primary Care Provider [phone] Rylee DANIEL MD, Courtney Unavailable [phone] Clark Almendarez MD Unavailable Reason for Visit * Reason Comments Medication Refill Encounter Details Date Type Department Care Team (Late st Contact Info) Description 06/10/2020 Refill [facility] - Family Medicine [facility] [address] [place] [address] Sandra Mejía, [facility] [address] [place] [address] Medication Refill Social History Tobacco Use Types Packs/Day Years Used Date Smoking Tobacco: Every Day Cigarettes 1 30 Smokeless Tobacco: Never Alcohol Use Standard [...] have Coronavirus / COVID-19? No / Unsure 05/27/2020 1:06 PM ESCROW CLERK documented as of this encounter Miscellaneous Notes * Telephone Encounter - Carmina De La Torre RN - 06/10/2020 9:41 AM CST Sent to PCP OW CLERK * Telephone Encounter - Carmina De La Torre RN - 06/10/2020 9:40 AM CST Per nursing clinical judgement, provider to review and approve the medication(s) order(s) if appropriate. Last OV 03/11/20, f/U None, Last Rx Flonase 02/07/20, Proair not on med list Carmina RUSSELL Requested Prescriptions Pending Prescriptions Disp Refills fluticasone (FLONASE) 50 MCG/ACT Suspension [Pharmacy Med Name: FLUTICASONE PROPIONATE 50MCG SUSPENSION] 16 g 3 Sig: USE 2 SPRAYS IN EACH NOSTRIL ONCE DAILY DIRECTED. Ear, Nose, and Throat: Nasal Preparations - Corticosteroids Passed - 06/10/2020 1:31 AM Passed - Valid encounter within last 12 months Past Office Visits Recent Outpatient Visits 3 months ago ASHD (arteriosclerotic heart disease) [facility] - Sandra Cornejo PAC 4 months ago Chronic obstructive pulmonary disease, unspecified COPD type (HCC) [facility] - Family Medicine - Sandra Cornejo PAC 3 years ago Dysuria [facility] - Family Medicine - Kenny Frias MD 3 years ago Hypertension, essential [facility] Kenny Waite MD 3 years ago Acute pancreatitis without infection or necrosis, unspecified pancreatitis type [facility] Kenny Waite MD Upcoming Appointments Future Appointments In 2 months Clark Almendarez MD [facility] PULMONOLOGY, [facility] DIRECTOR CRITICAL CARE - Recent and Past Visits Recent Visits Date Type Provider Dept 03/11/20 Office Visit Sandra Mejía PAC [facility] 02/07/20 Office Visit Sandra Mejía PAC [facility] Showing recent visits within past 460 days with a meds authorizing provider and meeting all other requirements Future Appointments No visits were found meeting these conditions. Showing future appointments within next 90 days with a meds authorizing provider and meeting all other requirements ProAir HFA 108 (90 Base) MCG/ACT Aerosol Solution [Pharmacy Med Name: PROAIR HFA AEROSOL SOLN] 8.5 g 10 Sig: INHALE 2 PUFFS INTO LUNGS EVERY 6-8 HOURS NEEDED FOR WHEEZING NEEDS TO SCHEDULE APPOINTMENTWITH NEW PCP BEFORE NEXT REFILL Pulmonology: Beta Agonists - Albuterol & Levalbuterol Failed - 06/10/2020 1:31 AM Failed - May refill 2 inhalers, 0 refills one time since last office visit. May refill #50 nebulizer vials, 0 refills for albuterol or #48 vials, 0 refills for Xopenex one time since last office visit. Passed - Valid encounter within last 6 months Past Office Visits Recent Outpatient Visits 3 months ago ASHD (arteriosclerotic heart disease) [facility] - Sandra Cornejo PAC 4 months ago Chronic obstructive pulmonary disease, unspecified COPD type (HCC) [facility] - Sandra Cornejo PAC 3 years ago Dysuria [facility] - Family Medicine - Kenny Frias MD 3 years ago Hypertension, essential [facility] - Kenny Frias MD 3 years ago Acute pancreatitis without infection or necrosis, unspecified pancreatitis type [facility] - Kenny Frias MD Upcoming Appointments Future Appointments In 2 months Clark Almendarez MD [facility] PULMONOLOGY, [facility] DIRECTOR CRITICAL CARE - Recent and Past Visits Recent Visits Date Type Provider Dept 03/11/20 Office Visit Sandra Mejía PAC [facility] 02/07/20 Office Visit Sandra Mejía PAC [facility] Showing recent visits within past 460 days with a meds authorizing provider and meeting all other requirements Future Appointments No visits were found meeting these conditions. Showing future appointments within next 90 days with a meds authorizing provider and meeting all other requirements Passed - Last BP in normal range BP Readings from Last 1 Encounters: 03/28/20 122/80 OW CLERK documented in this encounter Plan of Treatment Not on file documented as of this encounter Visit Diagnoses Not on filedocumented in this encounter Additional Health Concerns Infection Onset Date Last Indicated Resolved Time COVID - 19 10/24/2020 10/24/2020 10/24/2020 7:52 AM CDT COVID - 19 05/17/2023 05/17/2023 05/17/2023 5:58 PM ESCROW CLERK COVID - 19 Confirmed 05/17/2023 05/17/2023 023 12:16 AM ESCROW CLERK Assessment Noted Time PHQ-9 Depression Total Score: 0 03/11/20 11:04 AM CDT documented as of this encounter Care Teams Reporting Process Consultant Relationship Specialty Start Date End Date Sandra Mejía PAC [address] [place] [address] PCP - General Physician Automobile Accessories Salesperson 02/07/20 06/04/21 Oneal Sheriff MD [address] [place] [address] PCP - General Family Medicine 06/05/21 Ivan Hicks MD Consulting Physician Psychiatry 03/22/17 Denise Mckee III, MD [address] [place] [address] Consulting Physician Urology 10/12/22 Clark Almendarez MD [address] [place] [address] Consulting Physician Pulmonary Disease 02/08/23 documented as of this encounter
--- OUTSIDE RECORDS SUMMARY | 2024-12-30 09:09 | XMS_ITS | Encounter Summary ---
Author Organization [facility] Address [address] [place] [address] Phone Care Team Providers Care Manager Dental Name Role Phone Ivan Hicks MD Unavailable [phone] Oneal Sheriff MD Primary Care Provider [phone] Rylee DANIEL MD, Courtney Unavailable Clark Almendarez MD Unavailable Reason for Visit * Reason Comments Medication Refill Encounter Details Date Type Department Care Team (Late st Contact Info) Description 10/10/2021 Refill [facility] [address] [place] [phone] Sandra Mejía, [facility] [address] [place] [address] Medication Refill Social History Tobacco Use Types [...] making a change Department associated with goal: [facility] Steps [...] making a change Department associated with goal: [facility] Steps [...] - 19 05/17/2023 05/17/2023 05/17/2023 5:58 PM FRUIT LOADER COVID - 19 Confirmed 05/17/2023 05/17/2023 023 12:16 AM FRUIT LOADER Assessment Noted Time PHQ-9 Depression Total Score: 0 03/11/20 20 11:04 AM CDT documented as of this encounter Care Teams Manager Dental Relationship Specialty Start Date End Date Oneal Sheriff MD [address] [place] [address] PCP - General Family Medicine 06/05/21 Ivan Hicks MD Consulting Physician Psychiatry 03/22/17 Denise Mckee III, MD [address] [place] [address] Consulting Physician Urology 10/12/22 Clark Almendarez MD [address] [place] [id number] Consulting Physician Pulmonary Disease 02/08/23 documented as of this encounter
--- OUTSIDE RECORDS SUMMARY | 2024-12-30 09:09 | XMS_ITS | Encounter Summary ---
Author Organization [facility] Address [address] [place] [address] Phone Care Team Providers Care Mechanical Research Engineer Name Role Phone Ivan Hicks MD Unavailable [phone] Sandra Mejía Primary Care Provider + Oneal Sheriff MD Primary Care Provider [phone] Rylee DANIEL MD, Courtney Unavailable [phone] Clark Almendarez MD Unavailable Reason for Visit * Reason Comments Medication Refill Encounter Details Date Type Department Care Team (Late st Contact Info) Description 05/08/2020 Refill [facility] - Family Medicine [facility] [address] [place] [address] Sandra Mejía, [facility] [address] [place] [address] Medication Refill Social History Tobacco Use Types [...] - Carmina De La Torre RN - 05/08/2020 10:27 AM CST Sent to PCP LABORER * Telephone Encounter - Carmina De La Torre RN - 05/08/2020 10:26 AM CST Medication failed the protocol, provider to review and approve the medication order if appropriate. Last OV 03/11/20, F/U none, Last refill 02/08/20 will quantity twelve Carmina RUSSELL Requested Prescriptions Pending Prescriptions Disp Refills ergocalciferol (VITAMIN D) 42253 UNIT Capsule [Pharmacy Med Name: VITAMIN D [id number] CAPSULE] 12 Cap 12 Sig: TAKE 1 CAPSULE BY MOUTH ONCE A WEEK. Off-Protocol Failed - 05/08/2020 9:31 AM Failed - Medication not assigned to a protocol, review manually. Passed - Valid encounter within last 12 months Past Office Visits Recent Outpatient Visits 1 month ago ASHD (arteriosclerotic heart disease) [facility] - Family [facility] - Sandra Cornejo PAC 3 months ago Chronic obstructive pulmonary disease, unspecified COPD type (HCC) [facility] Family Medicine - Sandra Cornejo PAC 3 years ago Dysuria [facility] - Family Medicine - Kenny Frias MD 3 years ago Hypertension, essential [facility] Family Medicine Kenny Waite MD 3 years ago Acute pancreatitis without infection or necrosis, unspecified pancreatitis type [facility] Family [facility] - Kenny Frias MD Upcoming Appointments Future Appointments In 2 weeks Clark Almendarez MD [facility]IAN [facility] PULMONOLOGY, [facility] AIR LIAISON AND SPECIAL STAFF - Recent and Past Visits Recent Visits Date Type Provider Dept 03/11/20 Office Visit Sandra Mejía PAC [facility] 02/07/20 Office Visit Sandra Mejía PAC [facility] Showing recent visits within past 460 days with a meds authorizing provider and meeting all other requirements Future Appointments No visits were found meeting these conditions. Showing future appointments within next 90 days with a meds authorizing provider and meeting all other requirements LABORER documented in this encounter Plan of Treatment Not on file documented as of this encounter Visit Diagnoses Not on filedocumented in this encounter Additional Health Concerns Infection Onset Date Last Indicated Resolved Time COVID - 19 10/24/2020 10/24/2020 10/24/2020 7:52 AM CDT COVID - 19 05/17/2023 05/17/2023 05/17/2023 5:58 PM SHIP LABORER COVID - 19 Confirmed 05/17/2023 05/17/2023 023 12:16 AM SHIP LABORER Assessment Noted Time PHQ-9 Depression Total Score: 0 03/11/20 11:04 AM CDT documented as of this encounter Care Teams Mechanical Research Engineer Relationship Specialty Start Date End Date Sandra Mejía [facility] [address] [place] [address] PCP - General Physician Shoe Stainer 02/07/20 06/04/21 Oneal Sheriff MD [address] [place] [address] PCP - General Family Medicine 06/05/21 Ivan Hicks MD Consulting Physician Psychiatry 03/22/17 Denise Mckee III, MD [address] [place] [address] Consulting Physician Urology 10/12/22 Clark Almendarez MD [address] [place] [address] Consulting Physician Pulmonary Disease 02/08/23 documented as of this encounter
--- OUTSIDE RECORDS SUMMARY | 2024-12-30 09:09 | XMS_ITS | Encounter Summary ---
Author Organization [facility] Address [address] [place] [address] Phone Care Team Providers Care Jeeper Operator Name Role Phone Ivan Hicks MD Unavailable [phone] Sandra Mejía Primary Care Provider + Oneal Sheriff MD Primary Care Provider [phone] Rylee DANIEL MD, Courtney Unavailable [phone] Clark Almendarez MD Unavailable Reason for Visit * Reason Comments Medication Refill Encounter Details Date Type Department Care Team (Late st Contact Info) Description 11/05/2020 Refill [facility] - Family Medicine [facility] [address] [place] [address] Sandra Mejía, [facility] [address] [place] [address] Medication Refill Social History Tobacco Use Types [...] have Coronavirus / COVID-19? No / Unsure 10/31/2020 1:00 PM CDT documented as of this encounter Miscellaneous Notes * Telephone Encounter - Lula De Leon RN - 11/06/2020 9:04 AM CDT Medication failed the protocol, provider to review and approve the medication order if appropriate. Requested Prescriptions Pending Prescriptions Disp Refills nicotine (NICODERM CQ) 21 MG/24HR PATCH 24 HR [Pharmacy Med Name: NICOTINE TRANSDERMAL SYSTEM 21MG/24H PATCH 24HR] 30 Patch 5 Sig: APPLY 1 PATCH BY TRANSDERMAL ROUTE EVERY 24 HOURS. [facility] Not Delegated - Psychiatry: Drug Dependence Therapy Failed - 11/05/2020 8:25 PM Failed - This refill cannot be delegated Passed - Valid encounter within last 12 months Past Office Visits Recent Outpatient Visits 1 week ago Chronic obstructive pulmonary disease, unspecified COPD type (HCC) [facility] Sandra Cornejo PAC 2 weeks ago Essential [facility] 1 month ago Closed fracture of sternum with routine healing, unspecified portion of sternum, subsequent encounter [facility] - Sandra Cornejo PAC 8 months ago ASHD (arteriosclerotic heart disease) [facility] Sandra Cornejo PAC 9 months ago Chronic obstructive pulmonary disease, unspecified COPD type (HCC) [facility] Sandra Cornejo PAC Upcoming Appointments Future Appointments Tomorrow Ana Laura Odom LCSW [facility] In 6 days Sandra Mejía [facility] Ana Laura Odom LCSW [facility] In 1 week Sandra Mej[facility] In 1 week Ana Laura Odom LCSW [facility], [facility] PHYSICAL EDUCATION INSTRUCTOR - Recent and Past Visits Recent Visits Date Type Provider Dept 10/29/20 Office Visit Sandra Mejía PAC [facility] 10/17/20 Office Visit Sandra Mejía PAC [facility] 10/03/20 Office Visit Sandra Mejía, PAC [facility] 03/11/20 Office Visit Sandra Mejía, PAC [facility] 02/07/20 Office Visit Sandra Mejía PAC [facility] Showing recent visits within past 460 days with a meds authorizing provider and meeting all other requirements Future Appointments Date Type Provider Dept 11/12/20 Appointment Sandra Mejía PAC [facility] 11/14/20 Appointment Sandra Mejía PAC [facility] Showing future appointments within next 90 days with a meds authorizing provider and meeting all other requirements Passed - Last BP in normal range BP Readings from Last 1 Encounters: 10/29/20 108/64 fluticasone (FLONASE) 50 MCG/ACT Suspension [Pharmacy Med Name: FLUTICASONE PROPIONATE 50MCG SUSPENSION] 16 g 3 Sig: USE 2 SPRAYS IN EACH NOSTRIL ONCE DAILY DIRECTED. [facility] Ear, Nose, and Throat: Nasal Preparations - Corticosteroids Passed - 11/05/2020 8:25 PM Passed - Valid encounter within last 12 months Past Office Visits Recent Outpatient Visits 1 week ago Chronic obstructive pulmonary disease, unspecified [facility] 2 weeks ago Essential hypertension [facility] Sandra Cornejo PAC 1 month ago Closed fracture of sternum with routine healing, unspecified portion of sternum, subsequent encounter [facility] Sandra Cabello PAC 8 months ago ASHD (arteriosclerotic heart disease) [facility] Sandra Cornejo PAC 9 months ago Chronic obstructive pulmonary disease, unspecified COPD type (HCC) [facility] Sandra Cornejo PAC Upcoming Appointments Future Appointments Tomorrow Ana Laura Odom, [facility] In 6 days Sandra Mejía PAC [facility], [facility] In 1 week Ana Laura Odom, [facility] In 1 week Sandra Mejía PAC [facility], [facility] In 1 week Ana Laura Odom, [facility] PHYSICAL EDUCATION INSTRUCTOR - Recent and Past Visits Recent Visits Date Type Provider Dept 10/29/20 Office Visit Sandra Mejía PAC [facility] 10/17/20 Office Visit Sandra Mejía PAC [facility] 10/03/20 Office Visit Sandra Mejía PAC [facility] 03/11/20 Office Visit Sandra Mejía, PAC [facility] 02/07/20 Office Visit Sandra Mejía PAC [facility] Showing recent visits within past 460 days with a meds authorizing provider and meeting all other requirements Future Appointments Date Type Provider Dept 11/12/20 Appointment Sandra Mejía PAC [facility] 11/14/20 Appointment Sandra Mejía PAC [facility] Showing future appointments within next 90 days with a meds authorizing provider and meeting all other requirements busPIRone (BUSPAR) 5 MG Tablet [Pharmacy Med Name: BUSPIRONE HYDROCHLORIDE 5MG TABLET] 90 Tablet 5 Sig: TAKE 1 TABLET BY MOUTH 3 TIMES DAILY. [facility] Not Delegated - Psychiatry: Anxiolytics/Hypnotics Failed - 11/05/2020 8:25 PM Failed - This refill cannot be delegated Passed - Valid encounter within last 6 months Past Office Visits Recent Outpatient Visits 1 week ago Chronic obstructive pulmonary disease, unspecified COPD type (HCC) [facility] 2 weeks [facility]ne[facility] 1 month ago Closed fracture of sternum with routine healing, unspecified portion of sternum, subsequent encounter [facility] Sandra Cornejo PAC 8 months ago ASHD (arteriosclerotic heart disease) [facility] 9 months ago Chronic obstructive pulmonary disease, unspecified COPD type (HCC) [facility] Upcoming Appointments Future Appointments Tomorrow Ana Laura Odom, [facility], [facility] In 6 days Sandra Mejía PAC [facility], [facility] In 1 week Ana Laura Odom, [facility] week Sandra Mejía PAC [facility], [facility] In 1 week Ana Laura Odom, [facility] PHYSICAL EDUCATION INSTRUCTOR - Recent and Past Visits Recent Visits Date Type Provider Dept 10/29/20 Office Visit Sandra Mejía PAC [facility] 10/17/20 Office Visit Sandra Mejía PAC [facility] 10/03/20 Office Visit Sandra Mejía PAC [facility] 03/11/20 Office Visit Sandra Mejía, PAC [facility] 02/07/20 Office Visit Sandra Mejía, PAC [facility] Showing recent visits within past 460 days with a meds authorizing provider and meeting all other requirements Future Appointments Date Type Provider Dept 11/12/20 Appointment Sandra Mejía, PAC [facility] 11/14/20 Appointment Sandra Mejía PAC [facility] Showing future appointments within next 90 days with a meds authorizing provider and meeting all other requirements documented in this encounter Plan of Treatment Not on file documented as of this encounter Goals Goal Patient Goal Type Associated Problems Recent Progress Patient-Stated? Author Self-Esteem Behavioral Health Improving( 3:21 PM CDT) Yes Ana Laura Odom LCSW Note: Goal Reviewed with: patient today Readiness to change: Thinking about making a change Department associated with goal: [facility] Steps to [...] making a change Department associated with goal: [facility] Steps to [...] as of this encounter Visit Diagnoses Diagnosis Anxiety Anxiety state, unspecified documented in this encounter Additional Health Concerns Infection Onset Date Last Indicated Resolved Time COVID - 19 05/17/2023 05/17/2023 05/17/2023 5:58 PM WELDER APPRENTICE ARC COVID - 19 Confirmed 05/17/2023 05/17/2023 023 12:16 AM WELDER APPRENTICE ARC Assessment Noted Time PHQ-9 Depression Total Score: 0 03/11/20 11:04 AM CDT documented as of this encounter Care Teams Jeeper Operator Relationship Specialty Start Date End Date [facility] [address] [place] [address] PCP - General Physician Computer Game Programmer 02/07/20 06/04/21 Oneal Sheriff MD [address] [place] [address] PCP - General Family Medicine 06/05/21 Ivan Hicks MD Consulting Physician Psychiatry 03/22/17 Denise Mckee III, MD [address] [place] [address] Consulting Physician Urology 10/12/22 Clark Almendarez MD [address] [place] [address] Consulting Physician Pulmonary Disease 02/08/23 documented as of this encounter
--- OUTSIDE RECORDS SUMMARY | 2024-12-30 09:10 | XMS_ITS | Encounter Summary ---
Author Organization [facility] Address [address] [place] [address] Phone Care Team Providers Care Government Gauger Name Role Phone vIan Hicks MD Unavailable [phone] Sandra Mejía Primary Care Provider + Oneal Sheriff MD Primary Care Provider [phone] Rylee DANIEL MD, Courtney Unavailable [phone] Clark Almendarez MD Unavailable Reason for Visit * Reason Comments Medication Refill Encounter Details Date Type Department Care Team (Late st Contact Info) Description 12/12/2020 Refill [facility] - Family Medicine [facility] [address] [place] [address] Sandra Mejía, [facility] [address] [place] [address] Medication Refill Social History Tobacco Use Types [...] have Coronavirus / COVID-19? No / Unsure 12/09/2020 11:39 AM CDT documented as of this encounter Miscellaneous Notes * Telephone Encounter - Carmina De La Torre RN - 12/12/2020 10:27 AM CDT Per nursing clinical judgement, provider to review and approve the medication(s) order(s) if appropriate. Last OV 10/29/20, F/U 12/19/20, Last Rx 08/03/17 for Albuterol 2.5mg/3ml neb solution by Historical Provider Carmina RUSSELL Requested Prescriptions Pending Prescriptions Disp Refills ipratropium-albuterol (DUO-NEB) 0.5-2.5 (3) MG/3ML Solution [Pharmacy Med Name: IPRATROPIUM BROMIDE/ALBUTEROL SULFATE ALBUTER SOLUTION] 180 Vial 10 Sig: INHALE THE CONTENTS OF ONE VIAL (3 ML) 4 TIMES A DAY BY NEBULIZATION ROUTE. Inhaled Combinations Protocol Failed - 12/12/2020 9:58 AM Failed - Active on medication list Passed - Visit with relevant provider in past 12 months or upcoming 90 days Recent Visits Date Type Provider Dept 10/29/20 Office Visit Sandra Mejía PAC [facility] 10/17/20 Office Visit Sandra Mejía PAC [facility] 10/03/20 Office Visit Sandra Mejía PAC [facility] 03/11/20 Office Visit Sandra Mejía PAC [facility] 02/07/20 Office Visit Sandra Mejía PAC [facility] Showing recent visits within past 365 days and meeting all other requirements Future Appointments Date Type Provider Dept 12/19/20 Appointment Sandra Mejía PAC [facility] Showing future appointments within next 90 days and meeting all other requirements Passed - Active short-acting beta agonist prescription [facility] Pulmonology: Combination Products Passed - 12/12/2020 9:58 AM Passed - Valid encounter within last 12 months Past Office Visits Recent Outpatient Visits 1 month ago Chronic obstructive pulmonary disease, unspecified COPD type (HCC) [facility] Sandra Cornejo PAC 1 month ago Essential hypertension [facility] Sandra Cornejo PAC 2 months ago Closed fracture of sternum with routine healing, unspecified portion of sternum, subsequent encounter [facility] Sandra Cornejo PAC 9 months ago ASHD (arteriosclerotic heart disease) [facility] Sandra Cornejo PAC 10 months ago Chronic obstructive pulmonary disease, unspecified COPD type (HCC) [facility] Sandra Cornejo PAC Upcoming Appointments Future Appointments Tomorrow Ana Laura Odom, [facility], [facility] In 1 week Sandra Mejía [facility] PEDIATRIC PHYSICIAN ASSISTANT - Recent and Past Visits Recent Visits Date Type Provider Dept 10/29/20 Office Visit Sandra Mejía PAC [facility] 10/17/20 Office Visit Sandra Mejía PAC [facility] 10/03/20 Office Visit Sandra Mejía PAC [facility] 03/11/20 Office Visit Sandra Mejía, PAC [facility] 02/07/20 Office Visit Sandra Mejía PAC [facility] Showing recent visits within past 460 days with a meds authorizing provider and meeting all other requirements Future Appointments Date Type Provider Dept 12/19/20 Appointment Sandra Mejía PAC [facility] Showing future appointments within next 90 days with a meds authorizing provider and meeting all other requirements Passed - Last BP in normal range BP Readings from Last 1 Encounters: 10/29/20 108/64 documented in this encounter Plan of Treatment Not on file documented as of this encounter Goals Goal Patient Goal Type Associated Problems Recent Progress Patient-Stated? Author Self-Esteem Behavioral Health Improving( 3:21 PM CDT) Yes Ana Laura Odom LCSW Note: Goal Reviewed with: patient today Readiness to change: Thinking about making a change Department associated with goal: [facility] Steps to achieve [...] a change Department associated with goal: [facility] Steps to achieve [...] - 19 05/17/2023 05/17/2023 05/17/2023 5:58 PM LICENSED PHYSICAL THERAPIST ASSISTANT COVID - 19 Confirmed 05/17/2023 05/17/2023 023 12:16 AM LICENSED PHYSICAL THERAPIST ASSISTANT Assessment Noted Time PHQ-9 Depression Total Score: 0 03/11/20 20 11:04 AM CDT documented as of this encounter Care Teams Government Gauger Relationship Specialty Start Date End Date Sandra Mejía PAC [address] [place] [address] PCP - General Physician Instructional Support Assistant 02/07/20 06/04/21 Oneal Sheriff MD [address] [place] [address] PCP - General Family Medicine 06/05/21 Ivan Hicks MD Consulting Physician Psychiatry 03/22/17 Denise Mckee III, MD [address] [place] [address] Consulting Physician Urology 10/12/22 Clark Almendarez MD [address] [place] [id number] Consulting Physician Pulmonary Disease 02/08/23 documented as of this encounter
--- OUTSIDE RECORDS SUMMARY | 2024-12-30 09:10 | XMS_ITS | Encounter Summary ---
Author Organization [facility] Address [address] [place] [address] Phone Care Team Providers Care Bank Courier Name Role Phone Ivan Hicks MD Unavailable [phone] Sandra Mejía Primary Care Provider + Oneal Sheriff MD Primary Care Provider [phone] Rylee DANIEL MD, Courtney Unavailable [phone] Clark Almendarez MD Unavailable Reason for Visit * Reason Comments Medication Refill Encounter Details Date Type Department Care Team (Late st Contact Info) Description 01/06/2021 Refill [facility] - Family Medicine [facility] [address] [place] [address] Sandra Mejía, [facility] [address] [place] [address] Medication Refill Social History Tobacco Use Types [...] Encounter - Lula De Leon RN - 01/07/2021 11:32 AM CDT Gabapentin last filled by old PCP - last fill date 12/09/20 edication failed the protocol, provider to review and approve the medication order if appropriate. Requested Prescriptions Pending Prescriptions Disp Refills nicotine (NICODERM CQ) 21 MG/24HR PATCH 24 HR [Pharmacy Med Name: NICOTINE TRANSDERMAL SYSTEM 21MG/24H PATCH 24HR] 42 Patch Sig: APPLY 1 PATCH BY TRANSDERMAL ROUTE EVERY 24 HOURS. [facility] Not Delegated - Psychiatry: Drug Dependence Therapy Failed - 01/07/2021 11:31 AM Failed - This refill cannot be delegated Passed - Valid encounter within last 12 months Past Office Visits Recent Outpatient Visits 2 months ago Chronic obstructive pulmonary disease, unspecified COPD type (HCC) [facility] - Sandra Cornejo PAC 2 months ago Essential hypertension [facility] - Sandra Cornejo PAC 3 months ago Closed fracture of sternum with routine healing, unspecified portion of sternum, subsequent encounter [facility] - Sandra Cornejo PAC 10 months ago ASHD (arteriosclerotic heart disease) [facility] Sandra Cabello PAC 11 months ago Chronic obstructive pulmonary disease, unspecified COPD type (HCC) [facility] Sandra Cabello PAC Upcoming Appointments 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 Showing future appointments within next 90 days with a meds authorizing provider and meeting all other requirements Passed - Last BP in normal range BP Readings from Last 1 Encounters: 10/29/20 108/64 gabapentin (NEURONTIN) 100 MG Capsule [Pharmacy Med Name: GABAPENTIN 100MG CAPSULE] 90 Capsule Sig: TAKE ONE (1) CAPSULE BY MOUTH THREE (3) TIMES DAILY NEEDED [facility] Neurology: Anticonvulsants Passed - 01/07/2021 11:31 AM Passed - Valid encounter within last 12 months Past Office Visits Recent Outpatient Visits 2 months ago Chronic obstructive pulmonary disease, unspecified COPD type (HCC) [facility] Sandra Cornejo PAC 2 months ago Essential hypertension [facility] Sandra Cornejo PAC 3 months ago Closed fracture of sternum with routine healing, unspecified portion of sternum, subsequent encounter [facility] - Sandra Cornejo PAC 10 months ago ASHD (arteriosclerotic heart disease) [facility] - Sandra Cornejo PAC 11 months ago Chronic obstructive pulmonary disease, unspecified COPD type (HCC) [facility] - Sandra Cornejo PAC Upcoming Appointments 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 Author [facility] Improving( 3:21 PM CDT) Yes Ana Laura Odom LCSW Note: Goal Reviewed with: patient today Readiness to change: Thinking about making a change Department associated with goal: [facility] Steps to achieve [...] making a change Department associated with goal: [facility] Steps to achieve [...] - 19 05/17/2023 05/17/2023 05/17/2023 5:58 PM CERTIFIED NURSE MIDWIFE COVID - 19 Confirmed 05/17/2023 05/17/2023 023 12:16 AM CERTIFIED NURSE MIDWIFE Assessment Noted Time PHQ-9 Depression Total Score: 0 03/11/20 11:04 AM CDT documented as of this encounter Care Teams Bank Courier Relationship Specialty Start Date End Date Sandra Mejía PAC [address] [place] [address] PCP - General Physician Brim Raiser 02/07/20 06/04/21 Oneal Sheriff MD [address] [place] [address] PCP - General Family Medicine 06/05/21 Ivan Hicks MD Consulting Physician Psychiatry 03/22/17 Denise Mckee III, MD [address] [place] [address] Consulting Physician Urology 10/12/22 Clark Almendarez MD [address] [place] [address] Consulting Physician Pulmonary Disease 02/08/23 documented as of this encounter
--- OUTSIDE RECORDS SUMMARY | 2024-12-30 09:10 | XMS_ITS | Encounter Summary ---
Author Organization [facility] Address [address] [place] [address] Phone Care Team Providers Care Sprinkler Worker Name Role Phone Ivan Hicks MD Unavailable [phone] Sandra Mejía Primary Care Provider + Oneal Sheriff MD Primary Care Provider [phone] Rylee DANIEL MD, Courtney Unavailable [phone] Clark Almendarez MD Unavailable Reason for Visit * Reason Comments Medication Refill Encounter Details Date Type Department Care Team (Late st Contact Info) Description 12/09/2020 Refill [facility] - Family Medicine [facility] [place] [address] [place] [address] Sandra Mejía, [facility] [address] [place] [address] Medication Refill Social History Tobacco Use Types [...] Encounter - Lula De Leon RN - 12/09/2020 2:33 PM CDT The original prescription was discontinued on 10/17/2020 by Sandra Mejía, PAC documented in this encounter Plan of Treatment Not on file documented as of this encounter Goals Goal Patient Goal Type Associated Problems Recent Progress Patient-Stated? Author [facility] Improving( 3:21 PM CDT) Yes Ana Laura Odom LCSW Note: Goal Reviewed with: patient today Readiness to change: Thinking about making a change Department associated with goal: [facility] Steps [...] making a change Department associated with goal: [facility] Steps [...] - 19 05/17/2023 05/17/2023 05/17/2023 5:58 PM HYDRANT SETTER COVID - 19 Confirmed 05/17/2023 05/17/2023 023 12:16 AM HYDRANT SETTER Assessment Noted Time PHQ-9 Depression Total Score: 0 03/11/20 11:04 AM CDT documented as of this encounter Care Teams Sprinkler Worker Relationship Specialty Start Date End Date Sandra Mejía PAC [address] [place] [address] PCP - General Physician Tree Marker 02/07/20 06/04/21 Oneal Sheriff MD [address] [place] [address] PCP - General Family Medicine 06/05/21 Ivan Hicks MD Consulting Physician Psychiatry 03/22/17 Denise Mckee III, MD [address] [place] [address] Consulting Physician Urology 10/12/22 Clark Almendarez MD [address] [place] [address] Consulting Physician Pulmonary Disease 02/08/23 documented as of this encounter
--- OUTSIDE RECORDS SUMMARY | 2024-12-30 09:11 | XMS_ITS | Continuity of Care Document ---
Author Organization [facility] Address [address] [place] [address] Phone Care Team Providers Care Operational Risk Analyst Name Role Phone Nahid NUÑEZ MD, Chris Unavailable Unavailable Allergies, Adverse Reactions, Alerts Substance Reaction Status Criticality No Known Drug Allergies Active No I nformation Procedures Procedure Date Measure Blood Oxygen Level X-ray exam of ribs, Unilateral 2 Views O Chest x-ray, two views Office/outpatient visit,[facility] 2011 Advance Directives Directive Yes / No Effective Date File Name No Information Encounters Encounter Description Practice Location Reason(s) For Visit Diagnoses Date Provider Providers Copied on Encounter [facility], [address], [id number], tel:[phone] [facility] No Information 3 Nahid Perez. [address] [place] [address], [place], [place], [id number] , [place]. tel:[phone] Office/outpat ient visit,[facility], [address], [id number], tel:[phone] [facility] FRACTURE THREE RIBS-CLOSBronch itis, AcuteShortness of BreathChest Pain, Unspecified 2 Omid Martines. [address] [facility] [address] [place] [address], [place], [place], [id number] , [place]. tel:[phone] Family History Family Member Type Diagnosis Age At Onset No Information Payers Payer name Insurance type Covered constitution party ID Authoriza tikrystal(s) 3MA Claims [id number] Social History Type Description Quantity Date Captured [...]
--- NOTE | 2024-12-30 09:13 | ED.SKABFB ---
HPI - Skin/Abscess/Foreign Bdy General Chief complaint: Skin/Abscess/Foreign Body Stated complaint: Rash patient presents to [facility] with complaints of redness, swelling, pain to left lower leg that began over the last couple days. Patient reports he has been applying calamine lotion to the area and using a spray wound cleanser with some relief of swelling and redness. Patient denies any trauma or injury to the area noted that he was outside in the grass but denies any other rash areas or areas of redness and swelling. Denies fever, chills, body aches, numbness, tingling. Related Data Home Medications ?Medication ?Instructions ?Recorded ?Confirmed ?Last Taken ?Type albuterol sulfate 90 mcg/actuation 2 puff inhalation QID 12/11/19 01/20/24 Unknown History aerosol inhaler (ProAir HFA) atorvastatin 20 mg tablet 20 mg PO DAILY 08/31/20 01/20/24 Unknown History fluticasone 250 mcg-salmeterol 50 2 inh inhalation DAILY 08/01/23 01/20/24 Unknown History mcg/dose blistr powdr for inhalation (Advair Diskus) Allergies Allergy/AdvReac Type Severity Reaction Status Date / Time No Known Allergies Allergy Verified 12/30/24 09:18 Review of Systems Constitutional: Constitutional: Reports as per HPI, Denies chills, Denies fatigue, Denies fever(s) and Denies weakness Eyes: Eyes: Reports no additional eye complaints Cardiovascular: Cardiovascular: Reports no additional cardiovascular complaints Respiratory: Respiratory: Reports no additional respiratory complaints Gastrointestinal: Gastrointestinal: Reports no additional gastrointestinal complaints Genitourinary: Genitourinary: Reports no additional male genitourinary complaints Musculoskeletal: Musculoskeletal: Reports as per HPI, Denies back pain, Denies myalgias, Denies arthralgias, Reports joint swelling and Denies muscle cramps Integumentary/Breasts: Skin/Breast: Reports as per HPI, Denies breast pain, Denies breast mass, Denies pruritus, Reports erythema, Denies rash and Denies skin ulcer Comments: Swelling pain left lower leg Neurologic: Reports as per HPI, Denies numbness and Denies weakness Psychiatric: Psychiatric: Reports no additional psychiatric complaints Endocrine: Endocrine: Reports no additional endocrine complaints Hematologic/Lymphatic: Hematologic/Lymphatic: Reports no additional hematologic/lymphatic complaints Allergic/Immunologic: Allergic/Immunologic: Reports as per HPI, Denies lip swelling, Denies throat swelling and Denies tongue swelling PMFSH Past Medical History Medical History (Updated 12/30/24 @ 09:33 by NOBLE Main) Chronic back pain fell off a ladder Enlarged prostate COPD (chronic obstructive pulmonary disease) Family History Family History Other Heart disease Social History Social History (Updated 08/01/23 @ 09:29 by Calista Lao NP) Smoking status: Current every day smoker Alcohol intake: never Substance use type: does not use Living arrangements: alone Gender identity (if verbalized by the patient): Male Exam Const: General: healthy appearing and no acute distress Nutritional Appearance: well nourished Orientation/consciousness: patient oriented x3 Limitations: no limitations Resp: Effort & Inspection: normal respiratory effort Auscultation: clear to auscultation bilaterally Cardio: Rate: regular rate Rhythm: regular rhythm Skin: General skin exam: normal color Wounds: wounds noted Other: area of erythema noted to left medial lower leg no open wounds, draining, crusting noted minimal diffuse swelling and warmth surrounding the area. Homans sign negative, no calf pain. Neuro: General: patient oriented x3 and moves all extremities Speech: normal speech Gait exam (Neuro): Normal gait present Extrem: Left lower extremity: full ROM, normal capillary refill, edema Details: 1+ and lower leg Details: erythema, tenderness, non-pitting edema and warmth; inspection abnormal Psych: Mental Status: mental status grossly normal Affect: normal affect Attitude: cooperative Course Course Level of Care: Express Care Visit MDM - Skin/Abscess/Foreign Bdy MDM Narrative Medical decision making narrative: Cellulitis versus contact dermatitis. Due to patient's significantly elevated blood pressure will not put him on oral steroids will put on antibiotics and topical steroids continue calamine lotion as needed. Recommended follow-up with primary care physician got significantly elevated blood pressure. If patient starts having vision changes, significant headache, chest pain shortness for go to the emergency room for further evaluation. Discharge instructions reviewed with patient, as well as provided in writing per nursing staff. The instructions also include specific and strict return/GO TO THE ER as well as f/u information. All questions have been answered, and the patient deny any further questions with discharge and discharge plan. Differential Diagnosis Differential diagnosis: Likely abscess of skin or subcutaneous tissue, herpes zoster, allergic reaction to drug, cellulitis, eczema, impetigo and contact dermatitis Medical Records Attestation: I reviewed the patient's medical records. Discharge Plan Discharge Clinical Impression: Cellulitis, Elevated blood pressure reading Patient Disposition: Home Condition: Stable Instructions: Antibiotic Form, Cellulitis (ED) Additional Instructions: Take the antibiotics until they are gone. May use a topical steroids directly to the area in between using calamine lotion as well. Elevate leg as much as possible can use Tylenol and ibuprofen for pain and swelling. If area becomes significantly more painful, red, or you began to have calf pain go to the emergency room for further evaluation follow-up with your primary care within the next week, noted to take your blood pressure at home monitor this daily and bring a log to your primary care physician since this was significantly elevated today in the Urgent Care. Patient Language: Tuvaluan Prescriptions: No Action albuterol sulfate [ProAir HFA] 90 mcg/actuation Hfa Aerosol Inhaler 2 puff INHALATION QID atorvastatin 20 mg tablet 20 mg PO DAILY fluticasone propion-salmeterol [Advair Diskus] 250-50 mcg/dose blister with device 2 inh INHALATION DAILY prednisone 20 mg tablet 40 mg PO DAILY 5 Days Qty: 10 0RF ofloxacin 0.3 % drops 10 drp LEFT EAR BID 7 Days Qty: 10 0RF Follow-up/Referrals: Jaziel,MD Oneal [Primary Care Provider] - ( 1 week- skin evaluation of blood pressure check) Time of Disposition: 09:33
[2024-12-30 09:22] VITALS: BP 181/106; PULSE 105; RESP 20; TEMP 37.6; O2SAT 96
[2024-12-30 09:35] VITALS: BP 173/112; PULSE 90
== END 2024-12-30 09:35 | disposition home or self-care (01) ==
PROVIDERS: Emergency Provider Nurse Practitioner Family; PCP Hospitalist
DX: L03.116 Cellulitis of left lower limb (principal); R03.0 Elevated blood-pressure reading, without diagnosis of hypertension; J44.9 Chronic obstructive pulmonary disease, unspecified; N40.0 Benign prostatic hyperplasia without lower urinary tract symptoms; F17.200 Nicotine dependence, unspecified, uncomplicated
CPT/HCPCS: 99213; G0463